=== PATIENT | female | born 1985 | race Caucasian/White ===

== ENCOUNTER → 2016-12-17 | Emergency (ER) | payer OTHER ==
[~2016-12-17] VITALS: Ht 165.1 cm; Wt 56.7 kg
[~2016-12-17] MED LIST: SUBOXONE 8 MG-21 FIL SL
[2016-12-17 19:21] LABS: URINE BILIRUBIN - DIPSTICK NEGATIVE (NEG); URINE BLOOD NEGATIVE (NEG)
--- NOTE | 2016-12-17 19:22 | Emergency Room Report ---
History of Present Illness Time Seen by 1917 Presenting Problem in Triage Pt arrived:Walked Presenting Problem:WAS BROUGHT INTO ER FOR MEDIAL CLEARANCE FROM [facility]. DENIES ANY USE Onset of symptoms date/time:12/17/1607/29/1629 or onset unknown for: Treatment Prior to Arrival: VISUAL ARTIST Provided by: Sepsis Risk Assessment: Temp: 98.9 B/P: 124/79 MAP: 94 Pulse: 100 Resp: 18 Recent fever? N Clinical Suspician of Infection? N Mental Status: 1 - Regular (Normal Baseline) Sepsis Risk:Low Sepsis Risk Have you (or family members/close friends) recently traveled outside the [place]? N If Yes, where/when: Have you had exposure to infectious disease within the past month? N TB? Other? Specify: Mr. Pedro 31 years old -[place] patient of the [facility]oxone clinic. She is incarcerated for the last 6 days. She was brought for medical evaluation after an overdose in her Detention cell. she feels jittery because she is missing her Suboxone but she deniesadditional complaint. She denies drug is in long term or any additional symptoms. Source patient, RN notes reviewed, police, EMS Exam Limitations no limitations ALLERGIES Coded Allergies: No Known Allergies (12/17/16) Home Medications Reported Medications BUPRENORPHINE HCL/NALOXONE HCL (Suboxone 8 MG-2 MG Sl Film) 1 MG SL BID History Medical History General CAD? No Angina: No [place]: No Hypertension? No Hyperlipidemia? No CHF? No DVT? No PE? No COPD? No Asthma? No Anemia? No GERD? No Gastric ulcers? No GI Bleed? No Hernia? No Thyroid Problems? No Hypothyroidism? No CVA? No Seizures? No Diabetes? No Renal Insuffiency? No End Stage Renal Disease? No UTI? No Stones? No BPH? No GB Disease: No Nephritic Syndrome? No Asplenia? No Hepatitis? No Sickle Cell Disease? No Arthritis? No Migraines? No Cataracts? No Glaucoma? No MRSA? No HIV? No TB? No Anxiety? No Depression? No Cancer? No More? 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 Respiratory no symptoms reported Cardiovascular no symptoms reported Gastrointestinal no symptoms reported Genitourinary no symptoms reported. Musculoskeletal no symptoms reported Skin no symptoms reported Psychiatric/Neurological no symptoms reported Physical Exam Vital Signs Vital Signs Date Time Temp Pulse Resp B/P Pulse O2 O2 Flow FiO2 Ox Delivery Rate 12/17 1909 98.9 100 18 124/79 100 General Appearance normal appearance, WD/WN Eye Exam - bilateral eye normal exam, bilateral eye PERRL, bilateral eye EOMI Ear, Nose, Throat hearing grossly normal, normal ENT inspection Neck normal inspection, non-tender, supple, full range of motion Respiratory Status Yes: trachea midline, chest symmetrical, non tender chest. No: respiratory distress. Lung Sounds bilateral: normal breath sounds, lungs clear. 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 No Results/Orders Laboratory Tests 12/17/161904: Opiates Screen Pending, Urine Methadone Screen Pending, Barbiturates Pending, Phencyclidine Screen Pending, Amphetamines Screen Pending, Benzodiazepines Screen Pending, Cocaine Screen Pending, Marijuana (THC) Screen Pending, Urine Color Pending, Urine Appearance Pending, Urine pH Pending, Ur Specific [place] Pending Orders Procedure Date/time Status URINALYSIS/COMPLETE 12/17 1917 Active DRUG ABUSE SCREEN (TRIAGE) 12/17 1917 Active Departure Departure Time of Disposition 1920 Disposition DC Home or Self Care(routine) Clinical Impression Primary Impression: Medical clearance for incarceration Condition STABLE Additional Instructions The patient states that they have been for 3 hours, I contacted poison control, then revised report on exactly and tachycardia. The patient had neither she denied drug use. Discharge Counseling Counseled pt/family regarding diagnosis, test results, home care, follow up needs ED Critical Care Critical Care No If Critical Care minutes are documented, the time involved in the performance of seperately reportable procedures was not counted toward critical care time documented. I directly delivered medical care to this critically ill and/or injured patient. Timely evaluation and treatment was necessary to address the significant organ system(s) dysfunction present in this patient.
--- NOTE | 2016-12-17 19:22 | Emergency Room Report ---
History of Present Illness Time Seen by 1917 Presenting Problem in Triage Pt arrived:Walked Presenting Problem:WAS BROUGHT INTO ER FOR MEDIAL CLEARANCE FROM [facility]. 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 N Clinical Suspician of Infection? N Mental Status: 1 - Regular (Normal Baseline) Sepsis Risk:Low Sepsis Risk Have you (or family members/close friends) recently traveled outside the [place]? N If Yes, where/when: Have you had exposure to infectious disease within the past month? N TB? Other? Specify: Mr. Pedro 31 years old -[place] patient of the Suboxone clinic. She is incarcerated for the last 6 days. She was brought for medical evaluation after an overdose in her Assisted cell. she feels jittery because she is missing her Suboxone but she deniesadditional complaint. She denies drug is in intermediate or any additional symptoms. Source patient, RN notes reviewed, police, EMS Exam Limitations no limitations ALLERGIES Coded Allergies: No Known Allergies (12/17/16) Home Medications Reported Medications BUPRENORPHINE HCL/NALOXONE HCL (Suboxone 8 MG-2 MG Sl Film) 1 MG SL BID History Medical History General CAD? No Angina: No [place]: No Hypertension? No Hyperlipidemia? No CHF? No DVT? No PE? No COPD? No Asthma? No Anemia? No GERD? No Gastric ulcers? No GI Bleed? No Hernia? No Thyroid Problems? No Hypothyroidism? No CVA? No Seizures? No Diabetes? No Renal Insuffiency? No End Stage Renal Disease? No UTI? No Stones? No BPH? No GB Disease: No Nephritic Syndrome? No Asplenia? No Hepatitis? No Sickle Cell Disease? No Arthritis? No Migraines? No Cataracts? No Glaucoma? No MRSA? No HIV? No TB? No Anxiety? No Depression? No Cancer? No More? 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 Respiratory no symptoms reported Cardiovascular no symptoms reported Gastrointestinal no symptoms reported Genitourinary no symptoms reported. Musculoskeletal no symptoms reported Skin no symptoms reported Psychiatric/Neurological no symptoms reported Physical Exam Vital Signs Vital Signs Date Time Temp Pulse Resp B/P Pulse O2 O2 Flow FiO2 Ox Delivery Rate 12/17 1909 98.9 100 18 124/79 100 General Appearance normal appearance, WD/WN Eye Exam - bilateral eye normal exam, bilateral eye PERRL, bilateral eye EOMI Ear, Nose, Throat hearing grossly normal, normal ENT inspection Neck normal inspection, non-tender, supple, full range of motion Respiratory Status Yes: trachea midline, chest symmetrical, non tender chest. No: respiratory distress. Lung Sounds bilateral: normal breath sounds, lungs clear. Cardiovascular normal exam, regular rate/rhythm, no peripheral edema, no gallop, no JVD, no murmur, no rub, normal peripheral pulses Gastrointestinal normal bowel sounds, normal exam, non tender, soft, no organomegaly Back normal inspection, no CVA tenderness, no vertebral tenderness Extremities non-tender, normal range of motion, normal inspection Neurologic alert, slab off mill tender II-XII nml as tested, normal exam, oriented x 3 Reflexes Reflexes normal Yes Skin intact, normal color, warm/dry Lymphatic no adenopathy Medical Decision Making LABS/Meds/Orders Pt receiving controlled substance in ED? No Results/Orders Laboratory Tests 12/17/161904: Opiates Screen Pending, Urine Methadone Screen Pending, Barbiturates Pending, Phencyclidine Screen Pending, Amphetamines Screen Pending, Benzodiazepines Screen Pending, Cocaine Screen Pending, Marijuana (THC) Screen Pending, Urine Color Pending, Urine Appearance Pending, Urine pH Pending, Ur Specific [place] Pending Orders Procedure Date/time Status URINALYSIS/COMPLETE 12/17 1917 Active DRUG ABUSE SCREEN (TRIAGE) 12/17 1917 Active Departure Departure Time of Disposition 1920 Disposition DC Home or Self Care(routine) Clinical Impression Primary Impression: Medical clearance for incarceration Condition STABLE Additional Instructions The patient states that they have been for 3 hours, I contacted poison control, then revised report on exactly and tachycardia. The patient had neither she denied drug use. Discharge Counseling Counseled pt/family regarding diagnosis, test results, home care, follow up needs ED Critical Care Critical Care No If Critical Care minutes are documented, the time involved in the performance of seperately reportable procedures was not counted toward critical care time documented. I directly delivered medical care to this critically ill and/or injured patient. Timely evaluation and treatment was necessary to address the significant organ system(s) dysfunction present in this patient.
[2016-12-17 19:37] LABS: AMPHETAMINES/METAMPHETAMINES NEGATIVE ng/mL (<1000)
[2016-12-17 19:39] VITALS: BP 124/79
--- OUTSIDE RECORDS SUMMARY | 2016-12-24 23:30 | External Medical Summary Rpt ---
Author Author [facility] Organization [facility] Address Unknown Phone Unavailable Care Team Providers Care District Wire Chief Name Role Phone DR KIMBERLY PCP [phone] Encounter [facility] [id number] Date(s): 10/05/16 - 10/06/16 [facility] [address] [place] [address]- Discharge Diagnosis: Abdominal pain Discharge Diagnosis: Nausea Discharge Disposition: OP Self Care or Home Attending Physician: ALEX HAYS MD-EMR Admitting Physician: ALEX HAYS MD-EMR Referring Physician: ALEX HAYS MD-EMR Reason for Visit UNSPECIFIED ABDOMINAL PAIN Vital Signs Most recent 1 2 to oldest [Reference Range]: Temperature Oral Oral Source (10/06/16 4:17 AM) (10/05/16 7:27 PM) Temperature Fahrenheit Fahrenheit Mode (10/06/16 4:17 AM) (10/05/16 7:27 PM) Temperature, 98.3 Deg F 98.1 Deg F Fahrenheit (10/06/16 4:17 AM) (10/05/16 7:27 PM) [96.8-99.7 Deg F] Clinical 36.8 Deg C 36.7 Deg C Temperature, (10/06/16 4:17 AM) (10/05/16 7:27 PM) C Peripheral 74 bpm 87 bpm Pulse Rate (10/06/16 4:17 AM) (10/05/16 7:27 PM) [60-100 bpm] Respiratory 15 Breaths/Min 18 Breaths/Min Rate [14-20 (10/06/16 4:17 AM) (10/05/16 7:27 PM) Breaths/Min] Blood 135/69 mmHg 150/86 mmHg Pressure (10/06/16 4:17 AM) *HI* [90-140/60-9 (10/05/16 7:27 PM) 0 mmHg] Mean 91 mmHg Arterial (10/06/16 4:17 AM) Pressure (MAP) Oxygen 98 % 99 % Saturation (10/06/16 4:17 AM) (10/05/16 7:27 PM) [94-100 %] Oxygen Room air Therapy Mode (10/06/16 4:17 AM) Weight Critical estimated dosing Source, ED weight (10/05/16 7:27 PM) Weight Entry Universal Format (10/05/16 7:27 PM) Weight 95 lb [place] Citizen lb (10/05/16 7:27 PM) CLINICALWEIG 43.18 kg HT (10/05/16 7:27 PM) Problem List Condition Effective Status Health Informant Dates Status Active section(Conf irmed) Allergies, Adverse Reactions, Alerts No Known Allergies Medications buprenorphine-naloxone (Suboxone) SubLINgual , Every Day, Refills: 0 dicyclomine (Bentyl 20 mg oral tablet)1 Tab, Oral, Four Times A Day, 7 Day(s), Refills: 0Ordering provider: LISETH AMADO MD-EMR ondansetron (Zofran ODT 4 mg oral tablet, disintegrating)1 Tab, Oral, Three Times A Day, 3 Day(s), Refills: 0Ordering provider: LISETH AMADO MD-EMR Results GENERAL CHEMISTRY Most recent 1 to oldest [Reference Range]: Sodium Level 140 mmol/L [136-146 (10/05/16 7:43 PM) mmol/L] Potassium 4.2 mmol/L Level (10/05/16 7:43 PM) [3.5-5.1 mmol/L] Chloride 107 mmol/L Level (10/05/16 7:43 PM) [102-112 mmol/L] Carbon 24 mmol/L Dioxide (10/05/16 7:43 PM) Level [21-32 mmol/L] Anion Gap 13 [9-20] (10/05/16 7:43 PM) Glucose 104 mg/dL Level (10/05/16 7:43 PM) [74-106 mg/dL] Blood Urea 7 mg/dL Nitrogen (10/05/16 7:43 PM) [7-22 mg/dL] Creatinine 0.70 mg/dL Level (10/05/16 7:43 PM) [0.55-1.02 mg/dL] eGFR 119 mL/min/1.73m2 [>=60 (10/05/16 7:43 PM) mL/min/1.73m 2] eGFR 98 mL/min/1.73m2 NonAfrican (10/05/16 7:43 PM) [>=60 mL/min/1.73m 2] Bun/Creatini 10.0 ne (10/05/16 7:43 PM) [8.0-20.0] Calcium 9.2 mg/dL Level (10/05/16 7:43 PM) [8.5-10.1 mg/dL] Protein 7.5 Gram/dL Total (10/05/16 7:43 PM) [6.4-8.2 Gram/dL] Albumin 3.4 Gram/dL Level (10/05/16 7:43 PM) [3.4-5.0 Gram/dL] Globulin 4.1 Gram/dL [1.5-4.5 (10/05/16 7:43 PM) Gram/dL] A/G Ratio 0.8 [1.1-2.5] *LOW* (10/05/16 7:43 PM) Bilirubin 0.7 mg/dL Total (10/05/16 7:43 PM) [0.2-1.3 mg/dL] Alk Phos 67 Units/Liter [27-136 (10/05/16 7:43 PM) Units/Liter] AST [5-37 22 Units/Liter Units/Liter] (10/05/16 7:43 PM) ALT [12-78 19 Units/Liter Units/Liter] (10/05/16 7:43 PM) Lipase Level 154 Units/Liter [73-393 (10/05/16 7:43 PM) Units/Liter] HEMATOLOGY Most recent 1 to oldest [Reference Range]: WBC 9.5 K/uL [4.0-10.0 (10/05/16 7:43 PM) K/uL] RBC 4.11 Million/uL [3.93-5.22 (10/05/16 7:43 PM) Million/uL] Hgb 12.2 g/dL [11.2-15.7 (10/05/16 7:43 PM) g/dL] Hct 36.8 % [34.1-44.9 (10/05/16 7:43 PM) %] MCV 89.5 fL [79.0-94.8 (10/05/16 7:43 PM) fL] MCH 29.7 pg [25.6-32.2 (10/05/16 7:43 PM) pg] MCHC 33.2 Gram/dL [32.2-36.5 (10/05/16 7:43 PM) Gram/dL] Platelet 347 K/uL Count (10/05/16 7:43 PM) [163-369 K/uL] MPV 9.9 fL [9.4-12.4 (10/05/16 7:43 PM) fL] RDW 13.2 % [11.6-14.4 (10/05/16 7:43 PM) %] Neut % 56.1 % [34.0-71.0 (10/05/16 7:43 PM) %] Neut # 5.33 K/uL [1.56-6.13 (10/05/16 7:43 PM) K/uL] Lymph % 33.4 % [19.3-53.1 (10/05/16 7:43 PM) %] Lymph # 3.18 x10(3)/uL [1.00-3.90 (10/05/16 7:43 PM) x10(3)/uL] [place] % 7.9 % [3.0-9.0 %] (10/05/16 7:43 PM) [place] # 0.75 K/uL [0.16-1.00 (10/05/16 7:43 PM) K/uL] Eos % 1.7 % [0.0-7.0 %] (10/05/16 7:43 PM) Eos # 0.16 x10(3)/uL [0.00-0.80 (10/05/16 7:43 PM) x10(3)/uL] Baso % 0.6 % [0.0-1.5 %] (10/05/16 7:43 PM) Baso # 0.06 x10(3)/uL [0.00-0.20 (10/05/16 7:43 PM) x10(3)/uL] Slide Review No (10/05/16 7:43 PM) IG# 0.03 x10(3)/uL [0.00-0.05 (10/05/16 7:43 PM) x10(3)/uL] IG% 0.30 % [0.00-0.60 (10/05/16 7:43 PM) %] URINALYSIS Most recent 1 to oldest [Reference Range]: Urine Type U CleanCatch (10/05/16 7:43 PM) Urine Color Roslyn *NA* (10/05/16 7:43 PM) Urine Turbid Appearance *ABN* (10/05/16 7:43 PM) Urine 1.026 Specific (10/05/16 7:43 PM) [place] [1.005-1.030 ] Urine pH 6.0 Dipstick (10/05/16 7:43 PM) [6.0-8.0] Urine Negative Leukocyte (10/05/16 7:43 PM) Esterase [Negative] Urine Negative Nitrite (10/05/16 7:43 PM) [Negative] Urine Trace Protein *ABN* Dipstick (10/05/16 7:43 PM) [Negative] Urine Negative Glucose (10/05/16 7:43 PM) Dipstick [Negative] Urine Trace Ketones *ABN* Dipstick (10/05/16 7:43 PM) [Negative] Urine 1.0 EU/dL Urobilinogen (10/05/16 7:43 PM) Dipstick Urine Small Bilirubin *ABN* Dipstick (10/05/16 7:43 PM) [Negative] Urine Blood Negative Dipstick (10/05/16 7:43 PM) [Negative] Ur RBC 0-2 /HPF *ABN* (10/05/16 7:43 PM) Ur WBC 0-2 /HPF (10/05/16 7:43 PM) Ur Bacteria 1+ *ABN* (10/05/16 7:43 PM) Ur Mucous 3+ *ABN* (10/05/16 7:43 PM) Ur Squamous 0-2 /HPF Epithelial (10/05/16 7:43 PM) Cells Ur Renal 0-2 /HPF Epithelial *ABN* Cells (10/05/16 7:43 PM) Ur Hyaline 0-2 /LPF Casts *ABN* (10/05/16 7:43 PM) TOXICOLOGY Most recent 1 to oldest [Reference Range]: UDS pH 7.0 (10/05/16 11:43 PM) UDS Amp POSITIVE [NEGATIVE] *ABN* (10/05/16 11:43 PM) UDS Noris NEGATIVE [NEGATIVE] (10/05/16 11:43 PM) UDS Benzo NEGATIVE [NEGATIVE] (10/05/16 11:43 PM) UDS Arun NEGATIVE [NEGATIVE] (10/05/16 11:43 PM) UDS Opi NEGATIVE [NEGATIVE] (10/05/16 11:43 PM) UDS PCP NEGATIVE [NEGATIVE] (10/05/16 11:43 PM) UDS TCA Negative (10/05/16 11:43 PM) UDS THC POSITIVE [NEGATIVE] *ABN* (10/05/16 11:43 PM) Immunizations No data available for this section Procedures No data available for this section Social History Social History Response Type Smoking Status Current every day smoker Assessment and Plan No data available for this section Hospital Discharge Instructions Patient EducationAbdominal Pain, Adult Nausea, Adult
--- OUTSIDE RECORDS SUMMARY | 2016-12-24 23:30 | External Medical Summary Rpt ---
Author Author [facility] Organization [facility] Address Unknown Phone Unavailable Care Team Providers Care Tack Welder Name Role Phone DR KIMBERLY PCP [phone] Encounter [facility] [id number] Date(s): 10/05/16 - 10/06/16 [facility] [address] [place] [address]- [phone] Discharge Diagnosis: Abdominal pain Discharge Diagnosis: Nausea [...] ED weight (10/05/16 7:27 PM) Weight Entry Roland Format (10/05/16 7:27 PM) Weight 95 lb [place]ralt[place] lb (10/05/16 7:27 PM) CLINICALWEIG 43.18 kg [...] 3.18 x10(3)/uL [1.00-3.90 (10/05/16 7:43 PM) x10(3)/uL] [place] % 7.9 % [3.0-9.0 %] (10/05/16 7:43 PM) [place] # 0.75 K/uL [0.16-1.00 (10/05/16 7:43 PM) [...] PM) Urine 1.026 Specific (10/05/16 7:43 PM) [place] [1.005-1.030 ] Urine pH 6.0 Dipstick (10/05/16 [...]
--- OUTSIDE RECORDS SUMMARY | 2016-12-24 23:30 | External Medical Summary Rpt ---
Author Author [facility] Organization [facility] Address Unknown Phone Unavailable Care Team Providers Care Vacuum Kettle Cook Name Role Phone DR KIMBERLY PCP [phone] Encounter [facility] [id number] Date(s): 06/03/16 - 06/03/16 [facility] [address] [place] [address]- [phone] Discharge Diagnosis: Acute drug intoxication Discharge Disposition: OP Self Care or Home Attending Physician: PORTER HURST MD-EMR Admitting Physician: PORTER HURST MD-EMR Referring Physician: KIMBERLY, SELF REFERRED Reason for Visit DRUG OVERDOSE Vital Signs Most recent 1 to oldest [Reference Range]: Temperature Oral Source (06/03/16 3:04 PM) Temperature Fahrenheit Mode (06/03/16 3:04 PM) Temperature, 97.7 Deg F Fahrenheit (06/03/16 3:04 PM) [96.8-99.7 Deg F] Clinical 36.5 Deg C Temperature, (06/03/16 3:04 PM) C Peripheral 88 bpm Pulse Rate (06/03/16 3:04 PM) [60-100 bpm] Respiratory 18 Breaths/Min Rate [14-20 (06/03/16 3:04 PM) Breaths/Min] Blood 113/79 mmHg Pressure (06/03/16 3:04 PM) [90-140/60-9 0 mmHg] Oxygen 98 % Saturation (06/03/16 3:04 PM) [94-100 %] Oxygen Room air Therapy Mode (06/03/16 3:04 PM) Height Stated Source (06/03/16 3:04 PM) Height Entry [place] Format (06/03/16 3:04 PM) Height/Lengt 5 ft h, MALDIVIAN (06/03/16 3:04 PM) (ft) Height/Lengt 5 Inch h MALDIVIAN (06/03/16 3:04 PM) CLINICALHEIG 165.1 cm HT (06/03/16 3:04 PM) Weight Standing scale Source, ED (06/03/16 3:04 PM) Weight Entry [place] Format (06/03/16 3:04 PM) Weight 140 lb Yemeni lb (06/03/16 3:04 PM) CLINICALWEIG 63.64 kg HT (06/03/16 3:04 PM) Body Surface 1.7 m2 Area (BSA) (06/03/16 3:04 PM) Body Mass 23.3 kg/m2 Index (BMI) (06/03/16 3:04 PM) [19.0-24.0 kg/m2] Dana Body 57 kg Weight (06/03/16 3:04 PM) Problem List Condition Effective Status Health Informant Dates Status Active section(Conf irmed) Allergies, Adverse Reactions, Alerts No Known Allergies Medications buprenorphine-naloxone (Suboxone) SubLINgual , Every Day, Refills: 0 Results ENDOCRINOLOGY Most recent 1 to oldest [Reference Range]: HCG Urine Negative 1 Qualitative (06/03/16 3:25 PM) 1Result Comment: Performed in the ED. Immunizations No data available for this section Procedures No data available for this section Social History Social History Response Type Smoking Status Current every day smoker Assessment and Plan No data available for this section Hospital Discharge Instructions Patient EducationCannabis Use Disorder Chemical Dependency Marijuana Abuse-Brief
--- OUTSIDE RECORDS SUMMARY | 2016-12-24 23:30 | External Medical Summary Rpt ---
Author Author [facility] Organization [facility] Address Unknown Phone Unavailable Care Team Providers Care Financial Analysis Manager Name Role Phone DR KIMBERLY PCP [phone] Encounter [facility] [id number] Date(s): 06/03/16 - 06/03/16 [facility] [address] [place] [address]- Discharge Diagnosis: Acute drug intoxication Discharge Disposition: [...] Stated Source (06/03/16 3:04 PM) Height Entry Brant Format (06/03/16 3:04 PM) Height/Lengt 5 ft h, POLISH (06/03/16 3:04 PM) (ft) Height/Lengt 5 Inch h POLISH (06/03/16 3:04 PM) CLINICALHEIG 165.1 cm HT (06/03/16 3:04 PM) Weight Standing scale Source, ED (06/03/16 3:04 PM) Weight Entry Brant Format (06/03/16 3:04 PM) Weight 140 lb Malawian lb (06/03/16 3:04 PM) CLINICALWEIG 63.64 kg HT (06/03/16 3:04 PM) Body Surface 1.7 m2 Area (BSA) (06/03/16 3:04 PM) Body Mass 23.3 kg/m2 Index (BMI) (06/03/16 3:04 PM) [19.0-24.0 kg/m2] [place] Body 57 kg Weight (06/03/16 3:04 PM) [...]
--- OUTSIDE RECORDS SUMMARY | 2016-12-24 23:33 | External Medical Summary Rpt | CCD ---
Author Author , JENS Organization JENS Address Unknown Phone [email or web address] Care Team Providers Care It Disaster Recovery Manager Name Role Phone [facility] INGRIS, INGRIS Unavailable Unavailable CAVATASSI TONY, Unavailable Unavailable CAVATASSI TONY [facility] Unavailable Unavailable [facility] Un[facility] NHUNG KYL, Unavailable Unavailable NHUNG KYL [facility] Unavailable Unavailable [facility], [facility], Unavailable Unavailable [facility] LOVELY, LOVELY Unavailable Unavailable GEGE ANDREW, GEGE Unavailable Unavailable ANDREW PEÑALOZA HARITHA, PEÑALOZA HARITHA Unavailable Unavailable PEÑALOZA HARITHA, PEÑALOZA HARITHA Unavailable Unavailable MARTINEZ THO, MARTINEZ Unavailable Unavailable THO [facility] Unavailable Unavailable TRANSP[facility]ATION [facility], [facility] LUCERO EMILY, LUCERO Unavailable Unavailable EMILY [facility], Unavailable Unavailable [facility] HARNED ABDIRIZAK, HARNED Unavailable Unavailable ABDIRIZAK MAI NATTY, MAI NATTY Unavailable Unavailable RUPERT LAR, Unavailable Unavailable RUPERT LAR LYNCH LEL, LYNCH LEL Unavailable Unavailable NATACHA ALICE, NATACHA Unavailable Unavailable ALICE FELI ANDREW, FELI Unavailable Unavailable ANDREW CURTIS, CURTIS Unavailable Unavailable ARELIS MARCO, ARELIS MARCO Unavailable Unavailable [facility] # Unavailable Unavailable [id number], [facility] # [id number] [facility] # Unavailable Unavailable [id number], [facility] # [id number] [facility] # Unavailable Unavailable [id number], [facility] # [id number] [facility] Unavailable Unavailable [facility] Unavailable Unavailable [facility] [place] [facility] Unavailable [facility]available [facility] [place] [facility] Unavailable Unavailable [facility], [facility] -, [facility] - Unavailable Unavailable [facility] Unavailable Unavailable SERVICES, [facility] MELIO PAULA, MELIO PAULA Unavailable Unavailable RODGERS ANDREW, RODGERS Unavailable Unavailable ANDREW LANDRY GLE, LANDRY GLE Unavailable Unavailable NELTCYNTHIA EVA, NENER Unavailable Unavailable EVA [facility] Unavailable Unavailable PSC, [facility] OPII, OPII Unavailable Unavailable [facility], Unavailable Unavailable [facility] Unavailable Unavailable LAB, [facility] Unavailable Unavailable LAB, [facility] SILVIANO BAR, PAWLEY Unavailable Unavailable BAR PENCE, PENCE Unavailable Unavailable [facility], Unavailable Unavailable [facility] Un[facility], [facility] Unavailable Unavailable [facility], [facility] Unavailable Unavailable [facility], [facility], Unavailable Unavailable [facility] DEISY RAPHAEL, OLIVAS Unavailable Unavailable [facility] Unavailable Unavailable CLINIC, [facility], Unavailable Unavailable [facility] Unavailable Unavailable [facility], [id number] # Unavailable Unavailable [id number], [facility] # [id number] [facility] # Unavailable Unavailable [phone], [facility] # 9857 PEREZ ELIZABETH, PEREZ Unavailable Unavailable ELIZABETH PRATIMA IV, Unavailable Unavailable PRATIMA IV BACK NAZ, BACK Unavailable Unavailable NAZ [facility] Unavailable Unavailable [facility] WOOLUM EVA, WOOLUM Unavailable Unavailable EVA MAXWELL W, MAXWELL W Unavailable Unavailable Purpose Continuity of Care Document - 12-02-2009 through 2016 Problems Code Diagnosis DOS Provider Status [id number] CELLULITIS 10-24-2016 [facility] E871 HYPO-OSMOLA 10-23-2016 [facility] HYPONATREMI PROFESSIO A J9811 ATELECTASIS 10-23-2016 [facility] R05 COUGH 10-23-2016 [facility] Q91577 CUTANEOUS 10-22-2016 [facility] LEFT UPPER PHYS [facility] LIM[place] K5909 OTHER 10-05-2016 [facility] [place] [facility] N R1011 RIGHT UPPER 10-05-2016 [facility] PAIN PHYS R112 NAUSEA WITH 10-05-2016 [facility] VOMITING N EMERGENCY UNSPECIFIED PHYS R69 ILLNESS 09-28-2016 [facility] UNSPECIFIED TRANSPORTAT ION SER R42 DIZZINESS 06-03-2016 [facility] GIDDINESS COG[facility]T R5383 OTHER 06-03-2016 [facility] [place] FATIGUE URBAN COG[facility]T [id number] TOXIC 06-03-2016 [facility] [place] EFFECT [facility]RBAN SMOKE [facility] UNDETERMINE D INITIAL ENCNTR K8010 CALCULUS GB 12-04-2015 [facility] CHOLECYST [facility] W/O OBSTRUCTION R590 LOCALIZED 12-04-2015 [facility] EN[facility]ARGED [facility] LYMPH [facility]ES [facility] R599 ENLARGED 12-04-2015 [facility] UNSPECIFIED K8020 CALCULUS GB 11-21-2015 [facility] W/O SERV CHOLECYSTIT [facility] IS W/O OBSTRUCTION R109 UNSPECIFIED 11-06-2015 [place] [facility]OM[facility]AL SERV PAIN [facility] Z720 TOBACCO USE 11-06-2015 [facility] 23009 NAUSEA 05-18-2014 [facility] PH[facility] 9919 UNSPECIFIED 05-18-2014 [place] [place] EFFECT OF URBAN REDUCED COGOVT TEMPERATURE 10574 UNSPECIFIED 11-16-2013 [facility] HEPATITIS C PHYS PSC W/O HEPATIC COMA 52849 ABDOMINAL 11-16-2013 [facility] PAIN, EMERGENCY UNSPECIFIED PHYS PSC SITE 462 ACUTE 04-09-2011 PEÑALOZA HARITHA PHARYNGITIS 6238 OTHER 02-24-2011 [facility] SPECIFIED N EMERGENCY NONINFLAMMA PHYSI TORY DISORDER VAGINA 7881 DYSURIA 02-24-2011 [facility] N EMERGENCY PHYSI 7242 LUMBAGO 12-23-2010 [facility] 3549 UNSPECIFIED 10-20-2010 [facility] MONONEURITI S OF UPPER LIMB 3559 MONONEURITI 10-20-2010 [facility] S OF N EMERGENCY UNSPECIFIED PHYS SITE 7295 PAIN IN 2010 [facility] TISSUES OF [facility]OUNDAT[facility] LIM[place] 7379 UNSPECIFIED 2010 [place] [facility] CURV[facility] SERV OF SPINE [facility] 8472 LUMBAR 09-05-2010 [facility] E9270 OVEREXERTIO 09-05-2010 [facility] FROM EMERGENCY SUDDEN SERVICES STRENUOUS MOVEMENT 67978 OTH COMP OB 06-28-2010 [facility] SURGICAL N EMERGENCY WOUNDS SERV COND/COMP 36503 INFECTED 06-21-2010 [facility] POSTOPERATI VE SEROMA NEC V3001 SINGLE 06-13-2010 [facility] [address] PREV C/S 06-10-2010 [facility] DELIV DELIV CENTER W/WO PLLC MENTION ANTPRTM COND V252 STERILIZATI 06-10-2010 [facility] V270 OUTCOME OF 06-10-2010 [facility] DELIVERY CENTER SINGLE PLLC LIVEBORN V221 SUPERVISION 06-09-2010 [facility] OF OTHER CENTER NORMAL PLLC 43900 RHESUS 03-21-2010 [facility] ISOIMMUN CENTER AFFCT MGMT PLLC MOTH ANTPRTM COND V283 ENCOUNTER 01-30-2010 [facility] ROUTINE CENTER SCREEN PLLC MALFORMATIO N ULTRASONIC 95075 PREVIOUS 01-20-2010 [facility] C[facility] ANTPR[facility] COND/COMP V237 INSUFFICIEN 01-20-2010 [facility] CARE H D V2389 SUPERVISION 01-20-2010 [facility] [place] [facility] HIGH-RISK H D V2509 OTH GENERAL 01-20-2010 [facility] CNSL&ADVICE H D CONTRACEPT MANAGEMENT 6264 IRREGULAR 12-02-2009 [facility] MENSTRUAL CENTER CYCLE PLLC V745 SCREENING 12-02-2009 PATHOLOGY & EXAMINATION CYTOLOGY FOR LAB VENEREAL DISEASE Medications Na ND Rx Da Fi Fi Am Da Di Ph RX Ph St me C No te ll ll ou ys ag ar # ys at rm s nt no ma ic us Or Da si cy ia de te s n re d NA 69 02 03 2. 1 00 KE Ac RC 54 -2 -1 00 05 NT ti AN 70 0- 7- 0 07 UC ve 4 35 20 20 31 [place] 30 17 17 21 MG 2 37 CL IN NA IC SA L PH SP AR RA MA Y CY FL 58 12 01 0. 1 00 RI Ac UA 16 -1 -0 50 00 TE ti RI 00 5- 9- 0 00 ve X 90 20 20 18 AI QU 55 16 17 18 D AD 2 11 PH AR 20 MA 16 CY -2 01 #7 7 89 SY 2 RI NG E [place] 51 10 10 0 30 30 KR [address] 67 -0 -0 .0 OG 05 LS ti AT 21 7- 7- 00 ER 48 ON ve IN 28 20 20 0 90 11 11 PH ER 10 2 AR IN 0, MA L 00 CY 0 # UN IT 24 /G 35 M 2 CR EA M CI 55 08 08 [address] Ac TA 11 -2 -2 .0 OG 79 EW ti LO 10 3- 3- 00 ER [address] 34 20 20 1 T AM 43 11 11 PH MARIA INES 0 AR HN HB MA J R CY 40 # MG 24 76 TA 8 BL ET 00 08 08 0 [address] Ac 40 -2 -2 .0 OG 28 EW ti 60 3- 3- 00 ER 48 AR ve 35 20 20 4 T 70 11 11 PH MARIA INES 5 AR HN MA J CY # 24 76 8 00 08 08 0 20 10 KR 67 WO Ac 14 -0 -0 .0 OG 77 OS ti 31 8- 9- 00 ER 70 TE ve 34 20 20 9 R 80 11 11 PH WI 5 AR LL MA IA CY M # E 24 76 8 00 08 08 0 28 14 KR 44 CA Ac 40 -0 -0 .0 OG 28 RY ti 60 3- 3- 00 ER 11 ve 35 20 20 6 LA 70 11 11 PH RR 5 AR Y MA C CY # 24 76 8 DI 00 08 08 1 14 7 KR 67 CA Ac CL 37 -0 -0 .0 OG 77 RY ti OF 86 3- 3- 00 ER 12 ve EN 28 20 20 1 LA AC 10 11 11 PH RR 1 AR Y SO MA C D CY DR # 75 24 76 MG 8 TA B CY 00 08 08 1 30 10 KR 67 CA Ac CL 60 -0 -0 .0 OG 77 RY ti OB 33 3- 3- 00 ER 12 ve EN 07 20 20 2 LA ZA [address] 1 AR Y IN MA C E CY 5 # MG 24 TA 76 BL 8 ET PO 51 08 08 6 52 31 KR 67 CA Ac LY 99 -0 -0 7. OG 77 RY ti ET 10 3- 3- 00 ER 12 ve HY 45 20 20 0 3 LA LE 75 11 11 PH RR NE 7 AR Y MA C GL CY YC # OL 24 33 76 50 8 PO WD [place] 00 08 08 0 60 7 KR [address] 60 -0 -0 .0 OG 76 LS ti AT 31 2- 2- 00 ER 93 ON ve IN 48 20 20 3 14 11 11 PH ER 10 9 AR IN 0, MA L 00 CY 0 # UN IT 24 /M 76 L 8 RICHTER SP CY 00 06 06 0 6. 2 KR 67 RO Ac CL 59 -2 -2 00 OG 72 HE ti OB 15 4- 8- 0 ER 29 ve EN 65 20 20 9 PA ZA [address] 0 AR E IN MA E E CY 10 # MG 24 76 TA 8 BL ET NA 00 06 06 0 20 10 KR [address] 09 -2 -2 .0 OG 72 HE ti OX 30 4- 8- 00 ER 30 ve EN 14 20 20 0 PA 90 11 11 PH IG 50 5 AR E 0 MA E MG CY # TA BL [address] 00 06 06 0 10 5 KR 67 RO Ac ED 05 -2 -2 .0 OG 72 HE ti NI 40 4- 8- 00 ER 30 ve SO 01 20 20 1 PA NE 82 11 11 PH IG 5 AR E 20 MA E CY MG # TA 24 BL 76 ET 8 [place] 00 05 05 0 30 15 KR [address] 60 -1 -2 .0 OG 67 LS ti AT 31 1- 2- 00 ER 51 ON ve IN 48 20 20 9 15 11 11 PH ER 10 8 AR IN 0, MA L 00 CY 0 # UN IT 24 /M 76 L 8 RICHTER SP [place] 00 05 05 0 20 8 KR [address] 60 -0 -0 .0 OG 65 RT ti AT 31 4- 4- 00 ER 16 ER ve IN 48 20 20 8 15 11 11 PH CR 10 8 AR AI 0, MA G 00 CY T 0 # UN IT 24 /M 76 L 8 RICHTER SP NE 00 04 04 1 30 30 KR 63 WI Ac XI 18 -2 -2 .0 OG 78 LS ti UM 64 5- 5- 00 ER 61 ON ve [address] 00 11 11 PH ER 1 AR IN 20 MA L CY MG # PA 24 CK 35 ET 9 00 04 04 0 20 5 WA 37 DU Ac 59 -2 -2 .0 LG 83 NC ti 10 5- 5- 00 RE 43 AN ve 38 20 20 EN 50 11 11 S TH 5 #9 OM 85 7 J # 98 57 00 04 04 1 60 30 SO 37 WI Ac 47 -2 -2 .0 PE 16 LS ti 20 2- 2- 00 RS 60 ON ve 38 20 20 31 11 11 FA ER 6 MA IN LY L DR UG OX 00 04 04 0 15 1 KR 22 RO Ac YC 40 -1 -1 .0 OG 13 CK ti OD 60 6- 6- 00 ER 21 ve ON 51 20 20 1 TR E- 20 11 11 PH OY AC 1 AR C ET MA AM CY IN # OP HE 24 N 76 5- 8 32 5 RICHTER 53 04 04 0 28 7 KR 67 WO Ac LF 74 -1 -1 .0 OG 62 OS ti AM 60 6- 6- 00 ER 71 TE ve ET 27 20 20 8 R HO 20 11 11 PH WI XA 5 AR LL ZO MA IA LE CY M -T # E MP 24 DS 76 8 TA BL ET 00 04 04 0 20 5 KR 44 DU Ac 59 -0 -0 .0 OG 25 NC ti 10 6- 6- 00 ER 79 AN ve 38 20 20 9 50 11 11 PH TH 5 AR OM MA CY J # 24 76 8 OX 00 03 04 0 40 3 KR 22 DU Ac YC 40 -3 -0 .0 OG 13 NC ti OD 60 1- 1- 00 ER 09 AN ve ON 51 20 20 6 E- 20 11 11 PH TH AC 1 AR OM ET MA AM CY J IN # OP HE 24 N 76 5- 8 32 5 IB 53 03 04 2 30 7 KR 67 DU Ac UP 74 -3 -0 .0 OG 60 NC ti RO 60 1 1 00 ER 70 AN ve FE 46 20 20 4 N 50 11 11 PH TH 60 5 AR OM 0 MA MG CY J # TA BL 24 ET 76 8 DO 00 03 04 1 30 15 KR 67 DU Ac CU 53 -3 -0 .0 OG 60 NC ti SA 63 1 00 ER 74 AN ve TE 75 20 20 8 50 11 11 PH TH CA 1 AR OM L MA 24 CY J 0 # MG 24 CA 76 PS 8 UL E AZ 00 03 03 0 6. 5 WA 36 DU Ac IT 09 -0 -0 00 LG 76 NC ti HR 37 1- 1- 0 RE 98 AN ve OM 14 20 20 EN YC 61 11 11 S TH IN 8 #9 OM 85 25 7 J 0 # MG 98 57 TA BL ET SE 59 12 12 5 15 30 WA 89 DU Ac RT 76 -0 -0 .0 LG 11 NC ti RA 24 7- 9- 00 RE 58 AN ve LI 91 20 20 EN NE 00 10 10 S TH 5 #5 OM HC 57 L 4 J 10 # 0 55 MG 74 TA BL ET FE 64 12 12 5 30 30 WA 89 DU Ac RR 37 -0 -0 .0 LG 16 NC ti OU 60 9- 9- 00 RE 36 AN ve S 80 20 20 EN RICHTER 91 10 10 S TH LF 0 #5 OM AT 57 E 4 J 32 # 5 55 MG 74 TA BL ET Results Labs Lab Lab Date Result Refere Interp Status Commen Order Detail nces retati t Range on Urinalysis dipstick W Reflex Microscopic panel in Urine (12-17-2016 19:05) Bacteri 12-17- NONE O complet a 017 ed [Presen 19:05 ce] in Urine sedimen t by Light microsc opy Erythro NONE 0 complet cytes 017 ed [Presen 19:05 ce] in Urine sedimen t by Light microsc opy Epithel NONE 0#/hp complet ial 017 f - ed cells.s 19:05 5#/hp quamous f [Presen ce] in Urine sedimen t by Microsc opy high power field Urinalysis dipstick W Reflex Microscopic panel in Urine (12-17-2016 19:05) Appeara CLEAR CLEAR complet nce of 017 ed Urine 19:05 Bilirub NEGATIV NEG complet in 017 E ed [Presen 19:05 ce] in Urine by Test strip Erythro NEGATIV NEG complet cytes 017 E ed [Presen 19:05 ce] in Urine Color YELLOW YELLOW complet of 017 ed Urine 19:05 Ketones NEGATIV NEG complet 017 E ed [Presen 19:05 ce] in Urine by Automat ed test strip Mucus NEGATIV NEG complet [Presen 017 E ed ce] in 19:05 Urine sedimen t by Light microsc opy Nitrite NEGATIV NEG complet 017 E ed [Presen 19:05 ce] in Urine by Test strip Urobili 12-17- 0.2 NEG complet nogen 017 ed [Presen 19:05 ce] in Urine by Test strip Drugs identified in Urine by Screen method (12-17-2016 19:05) Ampheta 12-17- NEGATIV <1000 complet mine 017 E ed [Presen 19:05 ce] in Urine by Screen method 11-Hydr 12-17- NEGATIV <50 complet oxy 017 E ed delta-9 19:05 tetrahy drocann abinol [Presen ce] in Unspeci fied specime n Drugs Ur Scn (10-24-2016 17:12) Bupreno [id number] Negativ complet rphine 017 4 e ed SerPl-m 17:12 Positiv Cnc e SCT Propoxy [id number] Negativ complet ph Ur 017 09 e ed Ql 17:12 Negativ e SCT Oxycodo [id number] Negativ complet ne Ur 017 09 e ed Ql Scn 17:12 Negativ e SCT Barbitu [id number] Negativ complet rates 017 09 e ed Ur Ql 17:12 Negativ Scn e SCT Methado [id number] Negativ complet ne Ur 017 09 e ed Ql Scn 17:12 Negativ e SCT Tricycl 3905686 Negativ complet ics Ur 017 09 e ed Ql Scn 17:12 Negativ e SCT Benzodi 3576117 Negativ complet az Ur 017 09 e ed Ql Scn 17:12 Negativ e SCT Amphet+ [id number] Negativ complet Methamp 017 09 e ed het Ur 17:12 Negativ Ql e SCT Opiates 4856202 Negativ complet Ur Ql 017 09 e ed 17:12 Negativ e SCT Ampheta 2662393 Negativ complet mines 017 09 e ed Ur Ql 17:12 Negativ e SCT Cocaine 7650759 Negativ complet Ur Ql 017 09 e ed 17:12 Negativ e SCT PCP Ur [id number] Negativ complet Ql Scn 017 09 e ed 17:12 Negativ e SCT Cannabi [id number] Negativ complet noids 017 09 e ed SerPl 17:12 Negativ Ql e SCT Bas Metab 2000 Pnl SerPl (10-23-2016 15:05) Anion 2.0 3.0-11. complet Gap3 017 mmol/L 0 ed SerPl-s 15:05 Cnc BUN/Cre 10.0 7.0-25. complet at 017 0 ed SerPl 15:05 GFR/BSA 144 >60 complet .pred 017 mL/min/ ed SerPl 15:05 1.73 MDRD-Ar VRat Calcium 9.0 8.7-10. complet 017 mg/dL 4 ed XXX-sCn 15:05 c CO2 25.0 20.0-31 complet SerPl-s 017 mmol/L .0 ed Cnc 15:05 Chlorid 109 99-109 complet e 017 mmol/L ed SerPl-s 15:05 Cnc Potassi 4.0 3.5-5.5 complet um 017 mmol/L ed Bld-sCn 15:05 c Sodium 136 132-146 complet Bld-sCn 017 mmol/L ed c 15:05 Creat 0.50 0.60-1. complet Bld-mCn 017 mg/dL 30 ed c 15:05 BUN 5 mg/dL 9-23 complet Bld-mCn 017 ed c 15:05 Glucose 112 70-100 complet 017 mg/dL ed Bld-mCn 15:05 c Bacteria Shlw Wnd Aerobe Cult (10-23-2016 14:23) Gram No complet Stn XXX 017 organis ed 14:23 ms seen Gram Few complet Stn XXX 017 (2+) ed 14:23 WBCs seen Bacteri [id number] complet a XXX 017 6 ed Aerobe 14:23 Strepto Cult coccus pyogene s SCT Bas Metab 2000 Pnl SerPl (10-23-2016 11:43) Anion 1.0 3.0-11. complet Gap3 017 mmol/L 0 ed SerPl-s 11:43 Cnc GFR/BSA > 150 >60 complet .pred 017 mL/min/ ed SerPl 11:43 1.73 MDRD-Ar VRat Calcium 8.8 8.7-10. complet 017 mg/dL 4 ed XXX-sCn 11:43 c CO2 24.0 20.0-31 complet SerPl-s 017 mmol/L .0 ed Cnc 11:43 Chlorid 112 99-109 complet e 017 mmol/L ed SerPl-s 11:43 Cnc Potassi 4.2 3.5-5.5 complet um 017 mmol/L ed Bld-sCn 11:43 c Sodium 137 132-146 complet Bld-sCn 017 mmol/L ed c 11:43 Creat 0.40 0.60-1. complet Bld-mCn 017 mg/dL 30 ed c 11:43 BUN 2 < 5 9-23 complet Bld-mCn 017 mg/dL ed c 11:43 Glucose 87 70-100 complet 017 mg/dL ed Bld-mCn 11:43 c Bas Metab 2000 Pnl SerPl (10-23-2016 09:54) GFR/BSA 144 >60 complet .pred 017 mL/min/ ed SerPl 09:54 1.73 MDRD-Ar VRat Calcium 8.9 8.7-10. complet 017 mg/dL 4 ed XXX-sCn 09:54 c CO2 23.0 20.0-31 complet SerPl-s 017 mmol/L .0 ed Cnc 09:54 Chlorid 114 99-109 complet e 017 mmol/L ed SerPl-s 09:54 Cnc Potassi 4.2 3.5-5.5 complet um 017 mmol/L ed Bld-sCn 09:54 c Sodium 137 132-146 complet Bld-sCn 017 mmol/L ed c 09:54 Creat 0.50 0.60-1. complet Bld-mCn 017 mg/dL 30 ed c 09:54 BUN < 5 9-23 complet Bld-mCn 017 mg/dL ed c 09:54 Glucose 92 70-100 complet 017 mg/dL ed Bld-mCn 09:54 c Anion 0.0 3.0-11. complet Gap3 017 mmol/L 0 ed SerPl-s 09:54 Cnc Potassium SerPl-sCnc (10-23-2016 09:53) Potassi 08-11-2 4.2 3.5-5.5 complet um 017 mmol/L ed Bld-sCn 09:53 c HIV 1+O+2 Ab SerPl Ql (10-23-2016 09:53) HIV1+2 [id number] [place] complet Ab Ser 017 07 ctive ed Ql 09:53 [place] ctive SCT Hepatitis A+B+C 7a Pnl Ser (10-23-2016 09:53) HCV Ab [id number] [place] complet Ser 017 6 ctive ed Donr Ql 09:53 Reactiv e SCT HBV [id number] [place] complet core 017 07 ctive ed IgM 09:53 [place] SerPl ctive Ql IA SCT HAV IgM [id number] [place] complet SerPl 017 07 ctive ed Ql IA 09:53 [place] ctive SCT HBV [id number] [place] complet surface 017 07 ctive ed Ag 09:53 [place] SerPl ctive Ql IA SCT Bas Metab 2000 Pnl SerPl (10-23-2016 03:43) Anion 5.0 3.0-11. complet Gap3 017 mmol/L 0 ed SerPl-s 03:43 Cnc BUN/Cre 10.0 7.0-25. complet at 017 0 ed SerPl 03:43 GFR/BSA 144 >60 complet .pred 017 mL/min/ ed SerPl 03:43 1.73 MDRD-Ar VRat Calcium 8.5 8.7-10. complet 017 mg/dL 4 ed XXX-sCn 03:43 c CO2 22.0 20.0-31 complet SerPl-s 017 mmol/L .0 ed Cnc 03:43 Chlorid 109 99-109 complet e 017 mmol/L ed SerPl-s 03:43 Cnc Potassi 3.8 3.5-5.5 complet um 017 mmol/L ed Bld-sCn 03:43 c Sodium 136 132-146 complet Bld-sCn 017 mmol/L ed c 03:43 Creat 0.50 0.60-1. complet Bld-mCn 017 mg/dL 30 ed c 03:43 BUN -11-2 5 mg/dL 9-23 complet Bld-mCn 017 ed c 03:43 Glucose -11-2 103 70-100 complet 017 mg/dL ed Bld-mCn 03:43 c Bas Metab 2000 Pnl SerPl (10-23-2016 01:26) Glucose -- 103 70-100 complet 017 mg/dL ed Bld-mCn 01:26 c Anion 10-23-2 4.0 3.0-11. complet Gap3 017 mmol/L 0 ed SerPl-s 01:26 Cnc BUN/Cre 2 10.0 7.0-25. complet at 017 0 ed SerPl 01:26 GFR/BSA 117 >60 complet .pred 017 mL/min/ ed SerPl 01:26 1.73 MDRD-Ar VRat Calcium 8.8 8.7-10. complet 017 mg/dL 4 ed XXX-sCn 01:26 c CO2 25.0 20.0-31 complet SerPl-s 017 mmol/L .0 ed Cnc 01:26 Chlorid 10-23- 109 99-109 complet e 017 mmol/L ed SerPl-s 01:26 Cnc Potassi 3.6 3.5-5.5 complet um 017 mmol/L ed Bld-sCn 01:26 c Sodium 10-23- 138 132-146 complet Bld-sCn 017 mmol/L ed c 01:26 Creat 2 0.60 0.60-1. complet Bld-mCn 017 mg/dL 30 ed c 01:26 BUN 10-23-2 6 mg/dL 9-23 complet Bld-mCn 017 ed c 01:26 UA Dipstick Pnl Ur (10-22-2016 23:49) Urobili 10-22- 0.2 0.2 - complet nogen 017 E.U./dL 1.0 ed Ur Ql 23:49 E.U./dL Strip Nitrite [id number] Negativ complet Ur Ql 017 09 e ed Strip 23:49 Negativ e SCT Leukocy 4889337 Negativ complet te 017 09 e ed esteras 23:49 Negativ e Ur Ql e SCT Strip.a uto Prot Ur [id number] Negativ complet Ql 017 09 e ed Strip 23:49 Negativ e SCT Hgb Ur 7263529 Negativ complet Ql 017 09 e ed Strip.a 23:49 Negativ uto e SCT Bilirub [id number] Negativ complet Ur Ql 017 09 e ed Strip 23:49 Negativ e SCT Ketones 3013848 Negativ complet Ur Ql 017 09 e ed Strip 23:49 Negativ e SCT Glucose 9999539 Negativ complet Ur 017 09 e ed Strip-m 23:49 Negativ Cnc e SCT Sp Gr 1.008 1.001-1 complet Ur 017 .030 ed Strip 23:49 pH Ur 7.0 5.0-8.0 complet Strip.a 017 ed uto 23:49 Clarity [id number] Clear complet Ur 017 01 ed 23:49 Clear SCT Color [id number] Yellow, complet Ur 017 09 Straw ed 23:49 Yellow color SCT Drugs Ur Scn (10-22-2016 23:49) Bupreno [id number] Negativ complet rphine 017 09 e ed SerPl-m 23:49 Negativ Cnc e SCT Propoxy 3062966 Negativ complet ph Ur 017 09 e ed Ql 23:49 Negativ e SCT Oxycodo 7956910 Negativ complet ne Ur 017 09 e ed Ql Scn 23:49 Negativ e SCT Barbitu 7517116 Negativ complet rates 017 09 e ed Ur Ql 23:49 Negativ Scn e SCT Methado 2240483 Negativ complet ne Ur 017 09 e ed Ql Scn 23:49 Negativ e SCT Tricycl 0506298 Negativ complet ics Ur 017 09 e ed Ql Scn 23:49 Negativ e SCT Benzodi 7808398 Negativ complet az Ur 017 09 e ed Ql Scn 23:49 Negativ e SCT Amphet+ 6768860 Negativ complet Methamp 017 09 e ed het Ur 23:49 Negativ Ql e SCT Opiates 0512521 Negativ complet Ur Ql 017 09 e ed 23:49 Negativ e SCT Ampheta [id number] Negativ complet mines 017 09 e ed Ur Ql 23:49 Negativ e SCT Cocaine [id number] Negativ complet Ur Ql 017 4 e ed 23:49 Positiv e SCT PCP Ur [id number] Negativ complet Ql Scn 017 09 e ed 23:49 Negativ e SCT Cannabi [id number] Negativ complet noids 017 09 e ed SerPl 23:49 Negativ Ql e SCT Bacteria Bld Cult (10-22-2016 21:54) Bacteri No complet a XXX 017 growth ed Aerobe 21:54 at 5 Cult days Procedures Procedure DOS Code Location Performer Comment [facility] [id number] CARE/DAY MEDICAL 25 GROUP MINUTES INITIAL [id number] CARE/DAY MEDICAL 70 GROUP MINUTES RADIOLOGI 95609 VIRTUAL CURTIS C EXAM 7 RADIOLOGI CHEST 2 C VIEWS PROFESSIO FRONTAL&[place] [address] CN[facility] [facility] ABDOMEN & 7 RADIOLOGY LD IV PELVIS W/O CONTRAST MATERIAL NONEMERG A0110 FEDERATED LEXTRAN - TRNSPRT&B 7 US TRANSPORT INTRA-/IN ATION SER TERSTATE CARRIER NONEMERG A0110 FEDERATED LEXTRAN - TRNSPRT&B 7 US TRANSPORT INTRA-/IN ATION SER TERSTATE CARRIER NONEMERG A0110 FEDERATED LEXTRAN - TRNSPRT&B 7 US TRANSPORT INTRA-/IN ATION SER TERSTATE CARRIER NONEMERG A0110 FEDERATED LEXTRAN - TRNSPRT&B 7 US TRANSPORT INTRA-/IN ATION SER TERSTATE CARRIER NONEMERG A0110 FEDERATED LEXTRAN - TRNSPRT&B 7 US TRANSPORT INTRA-/IN ATION SER TERSTATE CARRIER NONEMERG A0110 FEDERATED LEXTRAN - TRNSPRT&B 7 US TRANSPORT INTRA-/IN ATION SER TERSTATE CARRIER AMB A0427 MAGDA MAGDA SERVICE 7 [place] [facility]ERGENCY COGOVT COGOVT TRANSPORT LEVEL 1 GROUND A0425 MAGDA MAGDA MILEAGE 7 [place] PER URBAN URBAN STATUTE COGOVT COGOVT MILE IMHISTOCH [address] [place] CINDYLTCYNTHIA EM/CYTCHM 6 Mar EA ADDL SERV ANTIBODY FOUNDATIO SLIDE N ANES 14076 [facility] INTRAPERI 6 [facility] ANESTHESI UPPER A PSC ABDOMEN W/LAPS NOS LAPAROSCO 52306 [place] CAVATASSI PY SURG 6 MEDICAL TONY CHOLECYST SERV ECTOMY FOUNDATIO N LEVEL III 57249 [place] NELTNER SURG 6 MEDICAL MAR PATHOLOGY SERV FOUNDATIO GROSS&ABDIRIZAK N ROSCOPIC EXAM IMHISTOCH 35118 [place] CINDYLTCYNTHIA EM/CYTCHM 6 MEDICAL Mar SERV ANTIBODY FOUNDATIO STAIN N PROCEDURE INJECTION J2405 [facility] 6 Y Y [facility] [place] [address] [place] [address] [facility] LIPASE 6 Y Y [facility] COMPREHEN [address] [facility] SIVE 6 Y Y METABOLIC [facility] PANEL URNLS DIP 68935 [facility] 6 Y Y STICK/TAB [facility] LET RGNT AUTO W/O MICROSCOP Y BLOOD 68050 [facility] COUNT 6 Y Y COMPLETE [facility] AUTOMATED THERAPEUT 44403 [facility] IC 6 Y Y INJECTION [facility] IV PUSH EACH NEW DRUG INJECTION J2270 [facility] [place] MORPHINE 6 Y Y [facility]ATE [facility] UP TO 10 MG THER [address] [facility] [place] PROPH/DX 6 Y Y NJX [facility] PUSH SINGLE/1S T SBST/[place] [address] [place] ABDOMINAL 6 MEDICAL BAR REAL SERV TIME FOUNDATIO W/IMAGE N LIMITED URINE 26410 [facility] [place] 6 Y Y TEST [facility] VISUAL COLOR CMPRSN METHS GROUND A0425 MAGDA MAGDA MILEAGE 5 [place]AY[place] PER URBAN URBAN STATUTE COGOVT COGOVT MILE AMBULANCE A0429 MAGDA MAGDA SERVICE 5 [place]AY[place] FAY[place] BLS URBAN URBAN EMERGENCY COGOVT COGOVT TRANSPORT SERVICES 63889 GREG PEREZ PROVIDED 5 FROY[place]AN ELIZABETH BTW 10 EMERGENCY PM&8 AM PHYS AT 24-HR FACI APPLICATI 97947 GREG BACK ON SHORT 1 FROYLAN NAZ ARM EMERGENCY SPLINT PHYS FOREARM-H AND STATIC RADEX 69435 [place] ARELIS MARCO SPINE 1 MEDICAL LUMBOSACR SERV AL 2/3 FOUNDATIO VIEWS RADEX 52514 [place] [facility] SPINE 1 MEDICAL THORACIC SERV 2 [facility] [place] DISCHARGE 1 [facility] DAY CLINIC MANAGEMEN PSC T 30 MIN/< SUBQ [address] CARE PER CLINIC DAY E/M PSC NORMAL 1ST [address]57 [facility] 1 [facility] CLINIC [place] [address] [facility] MICHELLE DELIVERY 1 CARE THO ONLY CENTER W/POSTPAR PLLC EMELY CARE ANESTHESI 25443 [facility] MELIO PAULA A 1 ANESTHESI A PSC DELIVERY ONLY LOW 741 [facility] CERVICAL 1 [facility] SECTION OTH 6639 [facility] BILATERAL 1 [facility]P DESTRUC/[place] [address] [facility]IP[facility] FELI SURG 1 [facility] PATHOLOGY OLGA LIDIAILIER GROSS&ABDIRIZAK ROSCOPIC EXAM LIG/TRNSX 47662 WOMENMina MARTINEZ J 1 CARE THO FALOPIAN CENTER TUBE PLLC DEL/ABDML SURG GLUCOSE 48009 [facility] POST 1 [facility] GLUCOSE HOSP HOSP DOSE INJECTION J2790 WOMENMina MARTINEZ RHO D IG 1 CARE THO HUMAN CENTER FULL DOSE PLLC 300 MCG COLLECTIO 12115 [facility] N VENOUS 1 [facility] BLOOD HOSP HOSP VENIPUNCT URE BLOOD 51252 [facility]TRAL COUNT 1 [facility] HEMOGLOBI HOSP HOSP N BLOOD 49983 [facility] CENTRAL COUNT 1 [facility] HEMATOCRI HOSP HOSP T ANTIBODY 57338 [facility]ENTRAL SCREEN 1 [facility] RBC EACH HOSP HOSP SERUM [place]QUE [place] PREG 99858 WOMENS LANDRY GLE UTERUS 0 CARE AFTER 1ST CENTER TRIMEST PLLC GESTATION GONADOTRO 56747 GENZYME GENZYME PIN 0 CORPORAT CORPORAT CHORIONIC QUANTITAT SHAYLEE ALPHA-FET 74311 GENZYME GENZYME OPROTEIN 0 [place] [address] GENZYME GENZYME ESTRIOL 0 CORPORAT CORPORAT INHIBIN A 55783 GENZYME GENZYME 0 CORPORAT CORPORAT COLLECTIO 94748 [facility] VENOUS 0 RAHUL-DALT ALICE BLOOD ON CLINIC VENIPUNCT URE IADNA 51756 PATHOLOGY PATHOLOGY CHLAMYDIA 0 & & CYTOLOGY CYTOLOGY TRACHOMAT LAB LAB IS AMPLIFIED PROBE TQ CYTP C/V 43767 PATHOLOGY PATHOLOGY AUTO THIN 0 & & LYR CYTOLOGY CYTOLOGY [place]PJ [place] [address] WOMENS MARTINEZ 0 CARE THO UTERUS CENTER LIMITED PLLC 1/ FETUSES IADNA 67716 PATHOLOGY PATHOLOGY NEISSERIA 0 & & CYTOLOGY CYTOLOGY GONORRHOE LAB LAB AE AMPLIFIED PROBE TQ Encounters Encounter Start End Date Code Location Performer Type Date EMERGENCY 59354 [facility] 7 7 EMERGENCY VISIT PHYS PSC HIGH SEVERITY& THREAT FUNCJ EMERGENCY 28412 [facility] 7 7 [place] VISIT EMERGENCY HIGH PHYS SEVERITY& THREAT FUNCJ OFFICE 48619 [place] [facility] OUTPATI[facility] 6 6 MEDICAL TONY T NEW 20 SERV MINUTES FOUNDATIO [facility] UNIVERSIT - 6 6 Y OUTPATIEN HOSPITAL T EMERGENCY 66567 UNIVERS[facility] WOOL 6 6 Y OF EVA DEPARTMEN [place] T VISIT HOSPI HIGH/URGE NT SEVERITY EMERGENCY 04315 [facility] 5 5 EMERGENCY RYA DEPARTMEN PHYS PSC T VISIT HIGH/URGE NT SEVERITY EMERGENCY 18013 [facility] DEPT 5 5 [place]OY[place] ELIZABETH VISIT EMERGENCY HIGH PHYS SEVERITY& THREAT FUNCJ EMERGENCY 73473 [facility] 4 4 EMERGENCY VISIT PHYS PSC HIGH SEVERITY& THREAT FUNCJ EMERGENCY 87919 PEÑALOZA HARITHA PEÑALOZA HARITHA 2 2 DEPARTMEN T VISIT MODERATE SEVERITY EMERGENCY 23712 [facility] 1 1 [place]OY[place] DEPARTMEN EMERGENCY T VISIT PHYSI HIGH/URGE NT SEVERITY OFFICE 35714 [facility] CHILDRESSEN 1 1 MEDICAL ABDIRIZAK T VISIT SERV 25 FOUNDATIO MINUTES EMERGENCY 22293 [facility] 1 1 FROYLAN NAZ DEPARTMEN EMERGENCY T VISIT PHYS MODERATE SEVERITY [facility]OS[facility] - 1 1 HOSPITAL OUTPATIEN T EMERGENCY 34718 [facility] 1 1 HOSPITAL DEPARTMEN T VISIT LOW/MODER SEVERITY EMERGENCY 51470 SEEMA LUCERO 1 1 EMERGENCY EMILY DEPARTMEN SERVICES T VISIT MODERATE SEVERITY EMERGENCY 10753 [facility] 1 1 [facility] [facility] DEPARTMEN EMERGENCY T VISIT SERV MODERATE SEVERITY [facility], 1 1 E OUTPATIEN T [facility]OSP[facility] 1 1 [facility] INPATIENT HOSP OFFICE 11175 DULCE MARTINEZ OUTPATIEN 1 1 [facility] 15 PLLC MINUTES OFFICE 70035 DENISS MARTINEZ OUTPATIEN 1 1 [facility] 15 PLLC MINUTES OFFICE 34340 [facility] OUTPATIEN 1 1 [facility] 15 PLLC MINUTES OFFICE 61052 [facility] OUTPATIEN 1 1 [facility] 15 PLLC MINUTES OFFICE 66145 WOMENMina MARTINEZ OUTPATIEN 1 1 [facility] 15 PLLC MINUTES OFFICE 53518 WOMENMina MARTINEZ OUTPATIEN 1 1 [facility] 15 PLLC MINUTES OFFICE 08350 WOMENMina MARTINEZ OUTPATIEN 1 1 [facility]IT CENTER 15 PLLC MINUTES [facility] CENTRAL - 1 1 [facility] OUTPATIEN HOSP T OFFICE 02354 WOMENMina MARTINEZ OUTPATIEN 0 0 [facility]ARE [facility] VISIT CENTER 15 PLLC MINUTES OFFICE 07256 GUILLERMO LI OUTPATIEN 0 0 FAYETTE NIKHILYETTE T VISIT CO H D CO H D 10 MINUTES OFFICE 13422 WOMENMina MARTINEZ OUTPATIEN 0 0 CARE THO T NEW CENTER MINUTES PLLC
--- OUTSIDE RECORDS SUMMARY | 2016-12-24 23:33 | External Medical Summary Rpt | CCD ---
Author Author , JENS Organization JENS Address Unknown Phone Care Team Providers Care Global Professional Name Role Phone [facility] Unavailable Unavailable MEDICAL GROUP, [facility] INGRIS, [facility] Unavailable Unavailable CAVATASSI TONY, Unavailable Unavailable CAVATASSI TOYN [facility], Unavailable Unavailable [facility] Unavailable Unavailable PHYS PSC, [...] CORPORAT HARNED ABDIRIZAK, HARNED Unavailable Unavailable ABDIRIZAK AMI NATTY, MAI NATTY Unavailable Unavailable RUPERT LAR, Unavailable Unavailable RUPERT LAR LYNCH LEL, LYNCH LEL Unavailable Unavailable NATACHA ALICE, NATACHA Unavailable Unavailable ALICE FELI ANDREW, FELI Unavailable Unavailable ANDREW CURTIS, CURTIS Unavailable Unavailable ARELIS MARCO, ARELIS MARCO Unavailable Unavailable [facility] # Unavailable Unavailable [id number], [facility] # [id number] [facility] # Unavailable Unavailable 08230, [facility] # [id number] [facility] # Unavailable Unavailable [id number], [facility] # 92531 [facility] Un[facility], [facility] Unavailable Unavailable [facility], [facility] [facility] [facility] Unavailable Unavailable [facility], [facility] [place] [facility] Unavailable Unavailable H D, [facility] [place] [facility] Unavailable Unavailable H D, [facility] H D [facility] -, [facility] - Unavailable Unavailable [facility] Unavailable Unavailable SERVICES, [facility] MELIO PAULA, MELIO PAULA Unavailable Unavailable RODGERS ANDREW, RODGERS Unavailable Unavailable ANDREW LANDRY GLE, LANDRY GLE Unavailable Unavailable NELTCYNTHIA EVA, NENER Unavailable Unavailable EVA [facility] Unavailable Unavailable PSC, [facility] OPII, OPII Unavailable Unavailable [facility], Unavailable Unavailable [facility] Unavailable Unavailable LAB, [facility] Unavailable Unavailable LAB, [facility] SILVIANO BAR, PAWLEY Unavailable Unavailable BAR PENCE, PENCE Unavailable Unavailable [facility], Unavailable Unavailable [facility] Unavailable Un[facility], [facility] Unavailable Unavailable EMERGENCY PHYSI, [facility] Unavailable Unavailable EMERGENCY SERV, [facility], Unavailable Unavailable [facility] DEISY RAPHAEL, OLIVAS Unavailable Unavailable RYA [facility] Unavailable Unavailable CLINIC, [facility], Unavailable Unavailable [facility] Unavailable Unavailable PROFESS[facility], [facility] # Unavailable Unavailable [phone], [facility] # [id number] [facility] # Unavailable Unavailable 9857, [facility] # 9857 PEREZ ELIZABETH, PEREZ Unavailable Unavailable ELIZABETH PRATIMA IV, Unavailable Unavailable PRATIMA IV BACK NAZ, BACK Unavailable Unavailable NAZ [facility] Unavailable Unavailable [facility], [facility] WOOLUM EVA, WOOLUM Unavailable Unavailable EVA MAXWELL W, MAXWELL W Unavailable Unavailable Purpose Continuity of Care Document - 12-02-2009 through 2016 Problems Code Diagnosis DOS Provider Status [id number] CELLULITIS 10-24-2016 [facility] E871 HYPO-OSMOLA 10-23-2016 [facility] HYPONATREMI PROFESSIO A J9811 ATELECTASIS 10-23-2016 [facility] R05 COUGH 10-23-2016 [facility] PROFESS[facility] M02347 CUTANEOUS 10-22-2016 [facility] ABSCESS OF EMERGENCY LEFT UPPER PHYS PSC LIMB K5909 OTHER 10-05-2016 [facility] [place] [facility] RADI[facility] N R1011 RIGHT UPPER 10-05-2016 [facility] EMERGENCY PAIN PHYS R112 NAUSEA WITH 10-05-2016 [facility] VOMITING N EMERGENCY UNSPECIFIED PHYS R69 ILLNESS 09-28-2016 [facility] UNSPECIFIED TRANSPORTAT ION SER R42 DIZZINESS 06-03-2016 [facility] [place] [facility] GIDDINESS COG[facility]T R5383 OTHER 06-03-2016 [facility] [place] FATIGUE URBAN [place]G[facility] [id number] TOXIC 06-03-2016 [facility] [place] EFFECT URBAN SMOKE [place]G[facility] UNDETERMINE D INITIAL ENCNTR K8010 CALCULUS GB 12-04-2015 [place] [facility]RON[facility] CHOLECYST FOUNDATION W/O OBSTRUCTION R590 LOCALIZED 12-04-2015 [place] [facility] ENLARGED SERV LYMPH NODES FOUNDATION R599 ENLARGED 12-04-2015 [place] [facility] L[facility] SERV [facility] UNSPECIFIED K8020 CALCULUS GB 11-21-2015 [place] [facility] W/O SERV CHOLECYSTIT FOUNDATION IS W/O OBSTRUCTION R109 UNSPECIFIED 11-06-2015 [place] [facility] ABDOMINAL SERV PAIN FOUNDATION Z720 TOBACCO USE 11-06-2015 [facility] 92832 NAUSEA 05-18-2014 [facility]ONE [facility] PHYS PSC 9919 UNSPECIFIED 05-18-2014 [facility] [place] EFFECT OF URBAN REDUCED COGOVT TEMPERATURE 94924 UNSPECIFIED 11-16-2013 [facility] VIRAL [facility]ERG[facility] HEPATITIS C PHYS PSC W/O HEPATIC COMA 30031 ABDOMINAL 11-16-2013 [facility] PAIN, EMERGENCY UNSPECIFIED PHYS PSC SITE 462 ACUTE 04-09-2011 PEÑALOZA HARITHA PHARYNGITIS 6238 OTHER 02-24-2011 [facility] SPECIFIED N EMERGENCY NONINFLAMMA PHYSI TORY DISORDER VAGINA 7881 DYSURIA 02-24-2011 [facility] N EMERGENCY PHYSI 7242 LUMBAGO 12-23-2010 [place] [facility] 3549 UNSPECIFIED 10-20-2010 [facility] MONONEURITI S OF UPPER LIMB 3559 MONONEURITI 10-20-2010 [facility] S OF N EMERGENCY UNSPECIFIED PHYS SITE 7295 PAIN IN 2010 [place] [facility] SOFT SERV TISSUES OF FOUNDATIO LIMB 7379 UNSPECIFIED 2010 [place] [facility] CURVATURE SERV OF SPINE FOUNDATIO 8472 LUMBAR 09-05-2010 [facility] E9270 OVEREXERTIO 09-05-2010 [facility] FROM EMERGENCY SUDDEN SERVICES STRENUOUS MOVEMENT 23646 OTH COMP OB 06-28-2010 [facility] SURGICAL N EMERGENCY WOUNDS SERV COND/COMP 44929 INFECTED 06-21-2010 [facility] POSTOPERATI VE SEROMA NEC V3001 SINGLE 06-13-2010 [facility] [place] [address] PREV C/S 06-10-2010 [facility] DELIV DELIV CENTER W/WO PLLC MENTION ANTPRTM COND V252 STERILIZATI 06-10-2010 [facility] V270 OUTCOME OF 06-10-2010 [facility] DELIVERY CENTER SINGLE PLLC LIVEBORN V221 SUPERVISION 06-09-2010 [facility] OF OTHER CENTER NORMAL PLLC 78880 RHESUS 03-21-2010 [facility] ISOIMMUN CENTER AFFCT MGMT PLLC MOTH ANTPRTM COND V283 ENCOUNTER 01-30-2010 [facility] ROUTINE CENTER SCREEN PLLC MALFORMATIO N ULTRASONIC 83816 PREVIOUS 01-20-2010 [facility] C-SECT [facility] DELIVERY CLINIC ANTPRTM COND/COMP V237 INSUFFICIEN 01-20-2010 [facility] [place] [facility] CARE H D V2389 SUPERVISION 01-20-2010 [facility] OF OTHER [place] HIGH-RISK H D V2509 OTH GENERAL 01-20-2010 [facility] CNSL&ADVICE H D CONTRACEPT MANAGEMENT 6264 IRREGULAR 12-02-2009 [facility] MENSTRUAL CENTER CYCLE PLLC V745 SCREENING 12-02-2009 [...] 3- 3- 00 ER 70 AR ve MO 34 20 20 1 T AM 43 [...] LA ZA 82 11 11 PH RR MO 1 AR Y IN MA C E [...] PA ZA 81 11 11 PH IG MO 0 AR E IN MA E E CY 10 # MG 24 76 TA 8 BL ET NA 00 06 06 0 20 10 KR 67 RO Ac MO 09 -2 -2 .0 OG 72 HE ti OX 30 4- 8- 00 ER 30 ve EN 14 20 20 0 PA 90 11 11 PH IG 50 5 AR E 0 MA E MG CY # TA BL 24 ET 76 8 MO 00 06 06 0 10 5 KR [...] 20 31 11 11 FA ER 6 AL IN LY L DR UG OX 00 [...] n Drugs Ur Scn (10-24-2016 17:12) Bupreno [id number] Negativ complet rphine 017 4 e ed SerPl-m 17:12 Positiv Cnc e SCT Propoxy 5106066 Negativ complet ph Ur 017 09 e ed Ql 17:12 Negativ e SCT Oxycodo 3061081 Negativ complet ne Ur 017 09 e ed Ql Scn 17:12 Negativ e SCT Barbitu 9666783 Negativ complet rates 017 09 e ed Ur Ql 17:12 Negativ Scn e SCT Methado 7868247 Negativ complet ne Ur 017 09 e ed Ql Scn 17:12 Negativ e SCT Tricycl 7926485 Negativ complet ics Ur 017 09 e ed Ql Scn 17:12 Negativ e SCT Benzodi 0674047 Negativ complet az Ur 017 09 e ed Ql Scn 17:12 Negativ e SCT Amphet+ 3741606 Negativ complet Methamp 017 09 e ed het Ur 17:12 Negativ Ql e SCT Opiates 9959051 Negativ complet Ur Ql 017 09 e ed 17:12 Negativ e SCT Ampheta 5730092 Negativ complet mines 017 09 e ed Ur Ql 17:12 Negativ e SCT Cocaine 0547355 Negativ complet Ur Ql 017 09 e ed 17:12 Negativ e SCT PCP Ur 7016334 Negativ complet Ql Scn 017 09 e ed 17:12 Negativ e SCT Cannabi 4017044 Negativ complet noids 017 09 e ed [...] 017 (2+) ed 14:23 WBCs seen Bacteri 1307820 complet a XXX 017 6 ed Aerobe [...] 1+O+2 Ab SerPl Ql (10-23-2016 09:53) HIV1+2 [id number] Non-[place] complet Ab Ser 017 07 ctive ed Ql 09:53 [place] ctive SCT Hepatitis A+B+C 7a Pnl Ser (10-23-2016 09:53) HCV Ab 5418106 Non[place] complet Ser 017 6 ctive ed Donr Ql 09:53 Reactiv e SCT HBV [id number] Non[place] complet core 017 07 ctive ed IgM 09:53 [place] SerPl ctive Ql IA SCT HAV IgM 1644275 Non[place] complet SerPl 017 07 ctive ed Ql IA 09:53 Non[place] ctive SCT HBV 1597129 Non[place] complet surface 017 07 ctive ed Ag 09:53 Non[place] SerPl ctive Ql IA SCT Bas Metab [...] ed Ur Ql 23:49 E.U./dL Strip Nitrite 1218364 Negativ complet Ur Ql 017 09 e ed Strip 23:49 Negativ e SCT Leukocy 2841617 Negativ complet te 017 09 e ed esteras 23:49 Negativ e Ur Ql e SCT Strip.a uto Prot Ur 2469400 Negativ complet Ql 017 09 e ed Strip 23:49 Negativ e SCT Hgb Ur 5338417 Negativ complet Ql 017 09 e ed Strip.a 23:49 Negativ uto e SCT Bilirub 9516193 Negativ complet Ur Ql 017 09 e ed Strip 23:49 Negativ e SCT Ketones 5513917 Negativ complet Ur Ql 017 09 e ed Strip 23:49 Negativ e SCT Glucose 9076254 Negativ complet Ur 017 09 e ed Strip-m 23:49 Negativ Cnc e SCT Sp Gr 1.008 1.001-1 complet Ur 017 .030 ed Strip 23:49 pH Ur 7.0 5.0-8.0 complet Strip.a 017 ed uto 23:49 Clarity 7055084 Clear complet Ur 017 01 ed 23:49 Clear SCT Color 5893983 Yellow, complet Ur 017 09 Straw ed 23:49 Yellow color SCT Drugs Ur Scn (10-22-2016 23:49) Bupreno [id number] Negativ complet rphine 017 09 e ed SerPl-m 23:49 Negativ Cnc e SCT Propoxy 6998040 Negativ complet ph Ur 017 09 e ed Ql 23:49 Negativ e SCT Oxycodo 8872657 Negativ complet ne Ur 017 09 e ed Ql Scn 23:49 Negativ e SCT Barbitu 5741001 Negativ complet rates 017 09 e ed Ur Ql 23:49 Negativ Scn e SCT Methado 8089799 Negativ complet ne Ur 017 09 e ed Ql Scn 23:49 Negativ e SCT Tricycl 6411956 Negativ complet ics Ur 017 09 e ed Ql Scn 23:49 Negativ e SCT Benzodi 7416426 Negativ complet az Ur 017 09 e ed Ql Scn 23:49 Negativ e SCT Amphet+ 5879498 Negativ complet Methamp 017 09 e ed het Ur 23:49 Negativ Ql e SCT Opiates 0125942 Negativ complet Ur Ql 017 09 e ed 23:49 Negativ e SCT Ampheta 5690754 Negativ complet mines 017 09 e ed Ur Ql 23:49 Negativ e SCT Cocaine 1880493 Negativ complet Ur Ql 017 4 e ed 23:49 Positiv e SCT PCP Ur 5186492 Negativ complet Ql Scn 017 09 e ed 23:49 Negativ e SCT Cannabi 2921743 Negativ complet noids 017 09 e ed SerPl 23:49 Negativ Ql e SCT Bacteria Bld Cult (10-22-2016 21:54) Bacteri No complet a XXX 017 growth ed Aerobe 21:54 at 5 Cult days Procedures Procedure DOS Code Location Performer Comment [facility] [address] CARE/DAY MEDICAL 25 GROUP MINUTES INITIAL [address] CARE/DAY MEDICAL 70 GROUP MINUTES RADIOLOGI 37843 VIRTUAL CURTIS C EXAM 7 RADIOLOGI CHEST 2 C VIEWS PROFESSIO FRONTAL&[place] [address] [facility] ABDOMEN & 7 RADIOLOGY LD IV PELVIS [...] URBAN URBAN STATUTE COG[place] MILE IMHISTOCH 58965 [place] CINDYLTC[place]TH[place] EM/CYTCHM 6 Mar EA ADDL SERV ANTIBODY FOUNDATIO SLIDE N ANES 33786 [facility] UPPER A PSC ABDOMEN W/LAPS NOS LAPAROSCO 49296 [place] [facility] PY SURG 6 MEDICAL TONY CHOLECYST SERV ECTOMY FOUNDATIO N LEVEL III 61984 [place] NELTNER SURG 6 MEDICAL MAR PATHOLOGY SERV FOUNDATIO GROSS&ABDIRIZAK N ROSCOPIC EXAM IMHISTOCH 30612 [place] CINDYLTC[place]TH[place] EM/CYTCHM 6 MEDICAL Mar SERV ANTIBODY FOUNDATIO STAIN N PROCEDURE INJECTION J2405 [facility] 6 [facility] [address] [place] [address] [facility] LIPASE 6 Y Y [facility] COMPREHEN 16640 [facility] SIVE 6 Y Y METABOLIC [facility] PANEL URNLS DIP 40558 [facility] 6 Y Y STICK/TAB [facility] LET RGNT AUTO W/O MICROSCOP Y BLOOD 85949 [facility] COUNT 6 Y Y COMPLETE [facility] AUTOMATED THERAPEUT 71892 [facility] IC 6 Y Y INJECTION [facility] IV PUSH EACH NEW DRUG INJECTION J2270 [facility] MORPHINE 6 Y Y SULFATE [facility] UP TO 10 MG THER 13467 [facility] PROPH/DX 6 Y Y NJX [facility] PUSH SINGLE/1S [place] SBST/[place] [address] [place] ABDOMINAL 6 MEDICAL BAR REAL SERV TIME FOUNDATIO W/IMAGE N LIMITED URINE 20576 [facility] 6 Y Y TEST [facility] VISUAL COLOR CMPRSN METHS GROUND A0425 [facility] MAGDA MILEAGE 5 [place] PER [facility]RB[facility] URBAN STATUTE COGOVT COGOVT MILE AMBULANCE A0429 MAG[facility] MAGDA SERVICE 5 [place] BLS [facility]AN EMERGENCY COGOVT COGOVT TRANSPORT SERVICES 08387 GREG PEREZ PROVIDED 5 [place] ELIZABETH BTW 10 EMERGENCY PM&8 AM PHYS AT 24-HR FACI APPLICATI 42412 GREG BACK ON SHORT 1 [place] NAZ ARM EMERGENCY SPLINT PHYS FOREARM-H AND STATIC RADEX 17871 [place] ARELIS [facility] SPINE 1 MEDICAL LUMBOSACR SERV AL 2/3 FOUNDATIO VIEWS RADEX 02583 [place] [facility] SPINE 1 MEDICAL THORACIC SERV 2 [facility] 39943 [place] DISCHARGE 1 [facility] DAY CLINIC MANAGEMEN PSC T 30 MIN/< SUBQ [address] CARE PER CLINIC DAY E/M PSC NORMAL 1ST 67538 [facility] [place] [address] [facility] MICHELLE DELIVERY 1 CARE THO ONLY CENTER W/POSTPAR PLLC EMELY CARE ANESTHESI 03135 [facility] MELIO PAULA A 1 ANESTHESI A PSC DELIVERY ONLY LOW 741 [facility] CERVICAL 1 [facility] SECTION OTH 6639 [facility] BILATERAL 1 [facility]P DESTRUC/[place] [address] [facility] FELI SURG 1 [facility] PATHOLOGY OLGA LIDIAILIER GROSS&ABDIRIZAK ROSCOPIC EXAM LIG/TRNSX 76349 WOMENMina MARTINEZ J 1 CARE THO FALOPIAN CENTER TUBE PLLC DEL/ABDML SURG GLUCOSE 90867 [facility] POST 1 [facility] GLUCOSE HOSP HOSP DOSE INJECTION J2790 WOMENMina MARTINEZ RHO D IG 1 CARE THO HUMAN CENTER FULL DOSE PLLC 300 MCG COLLECTIO 10082 [facility] N VENOUS 1 [facility] BLOOD HOSP HOSP VENIPUNCT URE BLOOD 97462 [facility] COUNT 1 [facility] HEMOGLOBI HOSP HOSP N BLOOD 44491 [facility] COUNT 1 [facility] HEMATOCRI HOSP HOSP T ANTIBODY 60818 [facility] SCREEN 1 [facility] RBC EACH HOSP HOSP SERUM TECHNIQUE US PREG 29004 [facility] LANDRY GLE UTERUS 0 CARE AFTER 1ST CENTER TRIMEST PLLC GESTATION GONADOTRO 03503 GENZYME GENZYME PIN 0 CORPORAT CORPORAT CHORIONIC QUANTITAT SHAYLEE ALPHA-FET 98407 GENZ[facility]ME GENZYME OPROTEIN 0 [place] [address] GENZYME GENZYME ESTRIOL 0 CORPORAT CORPORAT INHIBIN A 68522 GENZYME GENZYME 0 CORPORAT CORPORAT COLLECTIO 27619 [facility] VENOUS 0 RAHUL-DALT ALICE BLOOD ON CLINIC VENIPUNCT URE IADNA 19185 PATHOLOGY PATHOLOGY CHLAMYDIA 0 & & CYTOLOGY CYTOLOGY TRACHOMAT LAB LAB IS AMPLIFIED PROBE TQ CYTP C/V 42162 PATHOLOGY PATHOLOGY AUTO THIN 0 & & LYR CYTOLOGY CYTOLOGY [place]J [place] [address] [facility] MARTINEZ 0 CARE THO UTERUS CENTER LIMITED PLLC 1/ FETUSES IADNA 73464 PATHOLOGY PATHOLOGY NEISSERIA 0 & & CYTOLOGY CYTOLOGY GONORRHOE LAB LAB AE AMPLIFIED PROBE TQ Encounters Encounter Start End Date Code Location Performer Type Date EMERGENCY 54744 [facility] 7 7 EMERGENCY VISIT PHYS PSC HIGH SEVERITY& THREAT FUNCJ EMERGENCY 13070 [facility] DEPT 7 7 [place] VISIT EMERGENCY HIGH PHYS SEVERITY& THREAT FUNCJ OFFICE 65946 [place] [facility] OUTPATIEN 6 6 MEDICAL TONY T NEW 20 SERV MINUTES [facility] 6 [facility]PATIEN HOSPITAL T EMERGENCY 93150 [facility] 6 6 Y OF EVA DEPARTMEN [place] T VISIT HOSPI HIGH/URGE NT SEVERITY EMERGENCY 91982 [facility] 5 5 EMERGENCY RYA DEPARTMEN PHYS PSC T VISIT HIGH/URGE NT SEVERITY EMERGENCY 50626 [facility] PEREZ DEPT 5 5 [place] ELIZABETH VISIT EMERGENCY HIGH PHYS SEVERITY& THREAT FUNCJ EMERGENCY 61587 [facility] [facility] L[facility] DEPT 4 4 EMERGENCY VISIT PHYS PSC HIGH SEVERITY& THREAT FUNCJ EMERGENCY 53964 PEÑALOZA HARITHA PEÑALOZA HARITHA 2 2 DEPARTMEN T VISIT MODERATE SEVERITY EMERGENCY 92664 [facility] MAXWELL W 1 1 [place] DEPARTMEN EMERGENCY T VISIT PHYSI HIGH/URGE NT SEVERITY OFFICE 92832 RYAN CHILDRESSEN 1 1 MEDICAL ABDIRIZAK T VISIT SERV 25 FOUNDATIO MINUTES EMERGENCY 14128 [facility] 1 1 FROY[place]AN NAZ DEPARTMEN EMERGENCY T VISIT PHYS MODERATE SEVERITY HOSPITAL [facility] - 1 1 HOSPITAL OUTPATIEN T EMERGENCY 52332 [facility] 1 1 HOSPITAL DEPARTMEN T VISIT LOW/MODER SEVERITY EMERGENCY 19182 SE[facility] LUCERO 1 1 EMERGENCY EMILY DEPARTMEN SERVICES T VISIT MODERATE SEVERITY EMERGENCY 98402 [facility] 1 1 [facility] DEPARTMEN EMERGENCY T VISIT SERV MODERATE SEVERITY HOME [facility], 1 1 E OUTPATIEN T HOSPITAL [facility] 1 1 [facility] INPATIENT HOSP OFFICE 53711 DULCE MARTINEZ OUTPATIEN 1 1 CARE THO T VISIT CENTER 15 PLLC MINUTES OFFICE 71908 DEN[place] MARTINEZ OUTPATIEN 1 1 CARE THO T VISIT CENTER 15 PLLC MINUTES OFFICE 80071 [facility] MARTINEZ OUTPATIEN 1 1 CARE THO T VISIT CENTER 15 PLLC MINUTES OFFICE 50780 [facility] MARTINEZ OUTPATIEN 1 1 CARE THO T VISIT CENTER 15 PLLC MINUTES OFFICE 11348 WOMENMina MARTINEZ OUTPATIEN 1 1 CARE THO T VISIT CENTER 15 PLLC MINUTES OFFICE 59162 WOMENMina MATRINEZ OUTPATIEN 1 1 CARE THO T VISIT CENTER 15 PLLC MINUTES OFFICE 81965 WOMENMina MARTINEZ OUTPATIEN 1 1 CARE THO T VISIT CENTER 15 PLLC MINUTES [facility] - 1 1 [facility] OUTPATIEN HOSP T OFFICE 31063 WOMENMina MARTINEZ OUTPATIEN 0 0 CARE THO T VISIT CENTER 15 PLLC MINUTES OFFICE 57738 [facility] OUTPATIEN 0 0 [place] NI[facility]ILYET[facility] T VISIT CO H D CO H D 10 MINUTES OFFICE 91469 WOMENMina MARTINEZ OUTPATIEN 0 0 CARE THO T NEW CENTER MINUTES PLLC
--- OUTSIDE RECORDS SUMMARY | 2016-12-24 23:35 | External Medical Summary Rpt | CCD ---
Author Author , JENS COLINDRES Address Unknown Phone [email or web address] Immunization Name Date Rout CVX Reac Dose Comm Prov Is Faci e tion ent ider Refu lity Give sed n Infl 12-1 150 0.5 Hist KHAF No [facility] 5-20 mL oric MOOKIE AID0 a 16 al AYMA 7892 Quad Info N Inj rmat ion - Sour ce Unsp ecif ied MMR 05-2 Intr 3 999 Hist H134 No H134 3-19 amus oric 96 cula al r Info rmat ion - Sour ce Unsp ecif ied
--- OUTSIDE RECORDS SUMMARY | 2016-12-24 23:35 | External Medical Summary Rpt | CCD ---
Author Author , JENS COLINDRES Address Unknown Phone [email or web address] Immunization Name Date Rout CVX Reac Dose [...]
--- OUTSIDE RECORDS SUMMARY | 2016-12-24 23:35 | External Medical Summary Rpt | CCD ---
Author Author , JENS Organization JENS Address Unknown Phone [email or web address] Care Team Providers Care Computer Information Science Professor Name Role Phone [facility] Unavailable Unavailable MEDICAL GROUP, [facility] INGRIS AMADO Unavailable Unavailable CAVATASSI TONY, Unavailable Unavailable C[facility]AT[facility] TONY [facility], Unavailable Unavailable [facility] Unavailable Unavailable [facility], [...] Unavailable Unavailable ANDREW CURTIS, CURTIS Unavailable Unavailable [facility] # Unavailable Unavailable [id number], [facility] # [id number] [facility] # Unavailable Unavailable [id number], [facility] # [id number] [facility] # Unavailable Unavailable [id number], [facility] # [id number] [facility], [facility]available Unavailable [facility], [facility] Unavailable Unavailable [facility], [facility] Unavailable [facility]available [facility], [facility] Unavailable Unavailable [facility], [facility] -, [facility] - Unavailable Unavailable [facility] Unavailable Unavailable SERVICES, [facility] MELIO PAULA, MELIO PAULA Unavailable Unavailable RODGERS ANDREW, RODGERS Unavailable Unavailable ANDREW HO, FRANTZ GLE Unavailable Unavailable NELUANN EVA, NELUANN Unavailable Unavailable EVA [facility] Unavailable Unavailable PSC, [facility] OPII, OPII Unavailable Unavailable [facility], Unavailable Unavailable [facility] Unavailable Unavailable LAB, [facility] Unavailable Unavailable LAB, [facility] LAB PENCE, PENCE Unavailable Unavailable [facility], Unavailable Unavailable [facility] Un[facility] Unavailable Unavailable [facility], [facility] Unavailable Unavailable [facility]GENCY SERV, [facility]GENCY SERV [facility], Unavailable Unavailable [facility] DONAVON, DEISY Unavailable Unavailable DONAVON MORALES, EMIR Unavailable Unavailable ANDREW [facility] Unavailable Unavailable CLINIC, [facility], Unavailable Unavailable [facility] Unavailable Unavailable PROFESS[facility], [facility] # Unavailable Unavailable [phone], [facility] # [id number] [facility] # Unavailable Unavailable [phone], [facility] # 9857 PEREZ ELIZABETH, PEREZ Unavailable Unavailable ELIZABETH PRATIMA IV, Unavailable Unavailable PRATIMA IV BACK NAZ, BACK Unavailable Unavailable [facility] Unavailable Unavailable [facility], [facility] WOOLUM EVA, WOOLUM Unavailable Unavailable EVA MAXWELL W, MAXWELL W Unavailable Unavailable Purpose Continuity of Care Document - 12-02-2009 through 2016 Problems Code Diagnosis DOS Provider Status [id number] CELLULITIS 10-24-2016 [facility] E871 HYPO-OSMOLA 10-23-2016 [facility] HYPONATREMI PROFESSIO A J9811 ATELECTASIS 10-23-2016 [facility] R05 COUGH 10-23-2016 [facility] PROFESS[facility] [id number] CUTANEOUS 10-22-2016 [facility] ABSCESS OF EMERGENCY LEFT UPPER PHYS PSC LIMB K5909 OTHER 10-05-2016 [facility] [place] [facility] RADIOLOG[facility] N R1011 RIGHT UPPER 10-05-2016 [facility] EMERGENCY PAIN PHYS R112 NAUSEA WITH 10-05-2016 [facility] VOMITING N EMERGENCY UNSPECIFIED PHYS R69 ILLNESS 09-28-2016 [facility] UNSPECIFIED TRANSPORTAT ION SER R42 DIZZINESS 06-03-2016 [facility] GIDDINESS COGOVT R5383 OTHER 06-03-2016 [facility] FATIGUE URBAN COG[facility]T [id number] TOXIC 06-03-2016 [facility] EFFECT URBAN SMOKE COGOVT UNDETERMINE D INITIAL ENCNTR K8010 CALCULUS GB 12-04-2015 [facility]RON[facility] CHOLECYST [facility]OUNDATION W/O OBSTRUCTION R590 LOCALIZED 12-04-2015 [place] [facility] ENLARGED SERV LYMPH NODES FOUNDATION R599 ENLARGED 12-04-2015 [facility] L[facility] SERV [facility] UNSPECIFIED K8020 CALCULUS GB 11-21-2015 [place] [facility] W/O SERV CHOLECYSTIT [facility]OUNDATION IS W/O OBSTRUCTION R109 UNSPECIFIED 11-06-2015 [place] [facility] ABDOMINAL SERV PAIN FOUNDATION Z720 TOBACCO USE 11-06-2015 [facility] 68440 NAUSEA 05-18-2014 [facility]ONE [facility] PHYS PSC 9919 UNSPECIFIED 05-18-2014 [facility] EFFECT OF URBAN REDUCED COGOVT TEMPERATURE 87331 UNSPECIFIED 11-16-2013 [facility] VIRAL EMERGENCY HEPATITIS C PHYS PSC W/O HEPATIC COMA 66583 ABDOMINAL 11-16-2013 [facility] PAIN, EMERGENCY UNSPECIFIED PHYS PSC SITE 462 ACUTE 04-09-2011 PEÑALOZA HARITHA PHARYNGITIS 6238 OTHER 02-24-2011 [facility] SPECIFIED N EMERGENCY NONINFLAMMA PHYSI TORY DISORDER VAGINA 7881 DYSURIA 02-24-2011 [facility] N EMERGENCY PHYSI 7242 LUMBAGO 12-23-2010 [facility] 3549 UNSPECIFIED 10-20-2010 [facility] MONONEURITI S OF UPPER LIMB 3559 MONONEURITI 10-20-2010 [facility] UNSPECIF[facility] PHYS SITE [address] MED[facility] SOFT SERV TISSUES OF FOUNDATIO LIMB [address] MEDICAL CURVATURE SERV OF SPINE FOUNDATIO 8472 LUMBAR 09-05-2010 [facility] E9270 OVEREXERTIO 09-05-2010 [facility] Morgna FROM EMERGENCY SUDDEN SERVICES STRENUOUS MOVEMENT 76393 OTH COMP OB 06-28-2010 [facility] SURGICAL N EMERGENCY WOUNDS SERV COND/COMP 86355 INFECTED 06-21-2010 [facility] POSTOPERATI VE SEROMA NEC V3001 SINGLE 06-13-2010 [facility] [place] [address] PREV C/S 06-10-2010 [facility] DELIV DELIV CENTER W/WO PLLC MENTION ANTPRTM COND V252 STERILIZATI 06-10-2010 [facility] DUBILIER V270 OUTCOME OF 06-10-2010 [facility] DELIVERY CENTER SINGLE PLLC LIVEBORN V221 SUPERVISION 06-09-2010 [facility] NORMAL PLLC 77901 RHESUS 03-21-2010 [facility] ISOIMMUN CENTER AFFCT MGMT PLLC MOTH ANTPRTM COND V283 ENCOUNTER 01-30-2010 [facility] ROUTINE CENTER SCREEN PLLC MALFORMATIO N ULTRASONIC 57778 PREVIOUS 01-20-2010 [facility] DELIVERY CLINIC ANTPRTM COND/COMP V237 INSUFFICIEN 01-20-2010 [facility] Ly NIKHILY[facility] CO CARE H D V2389 SUPERVISION 01-20-2010 [facility] OF OTHER [place] [facility] HIGH-RISK H D V2509 OT GENERAL 01-20-2010 [facility] TEJEDAY[facility] CNSL&ADVICE H D CONTRACEPT MANAGEMENT 6264 [...] 3- 3- 00 ER 70 AR ve VA 34 20 20 1 T AM 43 [...] LA ZA 82 11 11 PH RR VA 1 AR Y IN MA C E [...] PA ZA 81 11 11 PH IG VA 0 AR E IN MA E E CY 10 # MG 24 76 TA 8 BL ET NA 00 06 06 0 20 10 KR 67 RO Ac VA 09 -2 -2 .0 OG 72 HE ti OX 30 4- 8- 00 ER 30 ve EN 14 20 20 0 PA 90 11 11 PH IG 50 5 AR E 0 MA E MG CY # TA BL 24 ET 76 8 VA 00 06 06 0 10 5 KR [...] 20 31 11 11 FA ER 6 ND IN LY L DR UG OX 00 [...] OG 60 NC ti RO 60 1 ER 70 AN ve FE 46 20 20 4 N 50 11 11 PH TH 60 5 AR OM 0 MA MG CY J # TA BL 24 ET 76 8 DO 00 03 04 1 30 15 KR 67 DU Ac CU 53 -3 -0 .0 OG 60 NC ti SA 63 1 ER 74 AN ve TE 75 20 [...] .0 LG 11 NC ti RA 24 7 00 RE 58 AN ve LI 91 20 20 EN NE 00 10 10 S TH 5 #5 OM HC 57 L 4 J 10 # 0 55 MG 74 TA BL ET FE 64 12 12 5 30 30 WA 89 DU Ac RR 37 -0 -0 .0 LG 16 NC ti OU 60 9 9- 00 RE 36 AN ve S 80 20 20 EN RICHTER 91 10 10 S TH LF 0 #5 OM AT 57 E 4 J 32 # 5 55 MG 74 TA BL ET Procedures Procedure DOS Code Location Performer Comment SBS 32718 [facility] 7 HEALTH CARE/DAY MEDICAL 25 GROUP MINUTES INITIAL 60844 [facility] 7 HEALTH CARE/DAY MEDICAL 70 GROUP MINUTES RADIOLOGI 54907 V[facility] CURTIS C EXAM 7 RADIOLOGI CHEST 2 C VIEWS PROFESSIO FRONTAL&[place] [address] [facility] & 7 RADIOLOGY LD IV [...] PER URBAN URBAN STATUTE COGOVT COGOVT MILE LAPAROSCO 85644 [place] [facility] PY SURG 6 MEDICAL TONY CHOLECYST SERV ECTOMY FOUNDATIO N ANES 69203 [facility] INTRAP[facility] 6 LTH ANDREW TONEAL ANESTHESI UPPER A PSC ABDOMEN W/LAPS NOS LEVEL III 15854 [place] NELT[place] SURG 6 MEDICAL EVA PATHOLOGY SERV FOUNDATIO GROSS&ABDIRIZAK N ROSCOPIC EXAM IMHISTOCH 41740 [place] NELTC[place] EM/CYTCHM 6 MEDICAL Mar SERV ANTIBODY FOUNDAT[facility] STAIN N PROCEDURE IMHISTOCH 01584 [place] NELUANN EM/CYTCHM 6 MEDICAL EVA EA ADDL SERV ANTIBODY FOUNDATIO SLIDE N THER 43998 [facility] PROPH/DX 6 Y Y NJX IV HOSPITAL HOSPITAL PUSH SINGLE/1S T SBST/[place] [address] [facility] LIPASE 6 Y Y HOSPITAL HOSPITAL URINE 10751 [facility] 6 Y Y TEST [facility] [place] [address] [facility] ABDOMINAL 6 Y Y REAL [facility] TIME W/IMAGE LIMITED THERAPEUT 67205 [facility] IC 6 Y Y INJECTION [facility] IV PUSH EACH NEW DRUG INJECTION J2270 [facility] MORPHINE 6 Y Y SULFATE [facility] UP TO 10 MG COMPREHEN 48962 [facility] SIVE 6 Y Y METABOLIC [facility] PANEL URNLS DIP 78012 [facility] 6 Y Y STICK/TAB [facility] LET RGNT AUTO W/O MICROSCOP Y INJECTION J2405 [facility] 6 Y [facility] PER 1 MG BLOOD 57277 [facility] COUNT 6 Y Y COMPLETE [facility] AUTOMATED AMBULANCE A0429 MAG[facility] MAGDA SERVICE 5 [place] BLS URBAN URBAN EMERGENCY COGOVT COGOVT TRANSPORT GROUND A0425 MAGDA MAGDA MILEAGE 5 [place] PER URBAN URBAN STATUTE COGOVT COGOVT MILE SERVICES 11871 GREG SUEROAVER PROVIDED 5 FROYLAN ELIZABETH BTW 10 EMERGENCY PM&8 AM PHYS AT 24-HR FACI APPLICATI 63319 GREG WEATHERSER ON SHORT 1 FROYLAN NAZ ARM EMERGENCY SPLINT PHYS FOREARM-H AND STATIC RADEX 93823 [facility] EMIR SPINE 1 [facility] ANDREW LUMBOSACR ON CLINIC AL 2/3 VIEWS RADEX 08757 [facility] EM[facility] SPINE 1 [facility]REW THORACIC ON CLINIC 2 [facility] 98457 [place] DIS[facility]GE 1 [place] [facility] MANAGEMEN PSC T 30 MIN/< SUBQ 56575 [facility] 1 [place] C[facility] PER CLINIC DAY E/M PSC NORMAL 70554 [facility]/GOYO 1 [place] [facility] [facility] PSC CARE PER DAY NML NB LOW 741 [facility] CERVICAL 1 [facility] HOSP SECTION OTH 6639 [facility] BILATERAL 1 [facility]NOST[facility]IST HOSP HOSP DESTRUC/[place] [address] [facility] FELI SURG 1 [facility]OOK[facility] & ANDREW PATHOLOGY DUBILIER GROSS&ABDIRIZAK ROSCOPIC EXAM 75468 [facility] DELIVERY 1 CARE THO ONLY CENTER W/POSTPAR PLLC EMELY CARE ANESTHESI 33431 [facility] MELIO PAULA A 1 ANESTHESI A PSC DELIVERY ONLY LIG/TRNSX 65482 [facility] MARTINEZ J 1 CARE THO FALOPIAN CENTER TUBE PLLC DEL/ABDML SURG GLUCOSE 96433 [facility] POST 1 [facility]STICIST GNOSTICIST GLUCOSE HOSP HOSP DOSE INJECTION J2790 [facility] RHO D IG 1 CARE THO HUMAN CENTER FULL DOSE PLLC 300 MCG BLOOD 12003 [facility] COUNT 1 [facility]NOSTICIST GNOSTICIST HEMATOCRI HOSP HOSP T COLLECTIO 99517 [facility] N VENOUS 1 GNOSTICIST GNOSTICIST BLOOD HOSP HOSP VENIPUNCT URE ANTIBODY 49030 [facility] SCREEN 1 GNOSTICIST GNOSTICIST RBC EACH HOSP HOSP SERUM TECHNIQUE BLOOD 32776 [facility] COUNT 1 GNOSTICIST GNOSTICIST [place] PREG 39165 [facility] FRANTZ GLE UTERUS 0 CARE AFTER 1ST [place] [address] GENZYME GENZYME ESTRIOL 0 CORPORAT CORPORAT ALPHA-FET 08821 GEN[facility] GENZYME OPROTEIN 0 CORPORAT CORPORAT SERUM GONADOTRO 12845 GEN[facility] GENZYME PIN 0 CORPORAT CORPORAT CHORIONIC QUANTITAT SHAYLEE INHIBIN A 41175 GENZYME GENZYME 0 CORPORAT CORPORAT COLLECTIO 03213 [facility] NATACHA N VENOUS 0 RAHUL-DALT ALICE BLOOD ON CLINIC VENIPUNCT URE IADNA 66664 PATHOLOGY PATHOLOGY NEISSERIA 0 & & CYTOLOGY CYTOLOGY GONORRHOE LAB LAB AE AMPLIFIED PROBE TQ IADNA 46766 PATHOLOGY PATHOLOGY CHLAMYDIA 0 & & CYTOLOGY CYTOLOGY TRACHOMAT LAB [place] [address] [facility] MARTINEZ 0 CARE THO UTERUS CENTER LIMITED PLLC 1/> FETUSES CYTP C/V 58547 PATHOLOGY PATHOLOGY AUTO THIN 0 & & LYR CYTOLOGY CYTOLOGY PREPJ SCR LAB LAB MNL RESCR PHYS Encounters Encounter Start End Date Code Location Performer Type Date EMERGENCY 21701 [facility] DEPT 7 7 EMERGENCY VISIT PHYS PSC HIGH SEVERITY& THREAT FUNCJ EMERGENCY 26271 [facility] DEPT 7 7 FROYLAN VISIT EMERGENCY HIGH PHYS SEVERITY& THREAT FUNCJ OFFICE 19817 [place] [facility] 6 6 MEDICAL TONY T NEW 20 SERV MINUTES FOUNDATIO N EMERGENCY 38291 [facility] 6 6 Y [facility] HIGH/URGE NT SEVERITY [facility]OSPITAL UNIVERSIT - 6 6 Y OUTPATI HOSPITAL T EMERGENCY 39665 [facility] 5 5 EMERGENCY RYA DEPARTMEN PHYS PSC T VISIT HIGH/URGE NT SEVERITY EMERGENCY 86926 [facility] PEREZ DEPT 5 5 FROYLAN ELIZABETH VISIT EMERGENCY HIGH PHYS SEVERITY& THREAT FUNCJ EMERGENCY 50780 [facility] 4 4 EMERGENCY VISIT PHYS PSC HIGH SEVERITY& THREAT FUNCJ EMERGENCY 70901 PEÑALOZA HARITHA PEÑALOZA HARITHA 2 2 DEPARTMEN T VISIT MODERATE SEVERITY EMERGENCY 86476 [facility] MAXWELL W 1 1 FROYLAN DEPARTMEN EMERGENCY T VISIT PHYSI HIGH/URGE NT SEVERITY OFFICE 07318 [place] [facility] OUT[facility]IEN 1 1 MEDICAL ABDIRIZAK T VISIT SERV 25 FOUNDATIO MINUTES EMERGENCY 28139 [facility] 1 1 HOSPITAL DEPARTMEN T VISIT LOW/MODER SEVERITY HOSPITAL [facility] - 1 1 HOSPITAL OUTPATIEN T EMERGENCY 46588 GREG BACK 1 1 FROYLAN CHILDS DEPARTMEN EMERGENCY T VISIT PHYS MODERATE SEVERITY EMERGENCY 30538 [facility] 1 1 EMERGENCY EMILY DEPARTMEN SERVICES T VISIT MODERATE SEVERITY EMERGENCY 44299 [facility] 1 1 FROYLAN ANDREW DEPARTMEN EMERGENCY T VISIT SERV MODERATE SEVERITY [facility], 1 1 E OUTPATIEN [facility] [place] [address] 1 GNOSTICIST INPATIENT HOSP OFFICE 37377 [facility] 1 1 CARE THO T VISIT CENTER 15 PLLC MINUTES OFFICE 12930 [facility] OUTPATIEN 1 1 CARE THO T VISIT CENTER 15 PLLC MINUTES OFFICE 06141 [facility] OUTPATI[facility] 1 1 CARE THO T VISIT CENTER 15 PLLC MINUTES OFFICE 04813 [facility] OUTPATIEN 1 1 CARE THO T VISIT CENTER 15 PLLC MINUTES OFFICE 95947 [facility] OUTPATIEN 1 1 CARE THO T VISIT CENTER 15 PLLC MINUTES OFFICE 01024 [facility] OUTPATIEN 1 1 CARE THO T VISIT CENTER 15 PLLC MINUTES OFFICE 89882 [facility] OUTPATIEN 1 1 CARE THO T VISIT CENTER 15 PLLC MINUTES [facility] [place] [address] 1 GNOSTICIST OUTPATIEN HOSP T OFFICE 92587 [facility] MARTINEZ OUTPATIEN 0 0 CARE THO T VISIT CENTER 15 PLLC MINUTES OFFICE 34367 [facility] [place] [facility] OUT[facility] 0 0 [facility]AY[place] FAYETTE T VISIT CO H D CO H D 10 MINUTES OFFICE 07247 DULCE MARTINEZ OUTPATIEN 0 0 CARE THO T DAVID 45 CENTER MINUTES PLLC
--- OUTSIDE RECORDS SUMMARY | 2016-12-24 23:35 | External Medical Summary Rpt | CCD ---
Author Author , JENS Organization JENS Address Unknown Phone [email or web address] Care Team Providers Care Strapper Name Role Phone [facility] Unavailable Unavailable MEDICAL GROUP, [facility] INGRIS AMADO Unavailable Unavailable CAVATASSI TONY, Unavailable Unavailable CAVATASSI TONY [facility], Unavailable Unavailable [facility] Unavailable Unavailable [facility], [...] Unavailable Unavailable [facility] # Unavailable Unavailable [id number], [facility] # [id number] [facility] # Unavailable Unavailable [id number], [facility] # [id number] [facility] # Unavailable Unavailable [id number], [facility] # [id number] [facility] Un[place], [place] [...] Unavailable Unavailable [facility] Unavailable Unavailable SERVICES, [facility] MELIO PAULA, MELIO PAULA Unavailable Unavailable RODGERS ANDREW, RODGERS Unavailable Unavailable ANDREW HO, FRANTZ GLE Unavailable Unavailable NELUANN EVA, NELUANN Unavailable Unavailable EVA [facility] Unavailable Unavailable PSC, [facility] OPII, OPII Unavailable Unavailable [facility], Unavailable Unavailable [facility] Unavailable Unavailable LAB, [facility] Unavailable Unavailable LAB, [facility] LAB PENCE, PENCE Unavailable Unavailable [facility], Unavailable Unavailable [facility] Un[facility] Unavailable Unavailable [facility], [facility] Unavailable Unavailable [facility]ENCY SERV, [facility], Unavailable Unavailable [facility] DONAVON, DEISY Unavailable Unavailable DONAVON MORALES, EMIR Unavailable Unavailable ANDREW [facility] Unavailable Unavailable CLINIC, [facility], Unavailable Unavailable [facility] Unavailable Unavailable [facility], [id number] # Unavailable Unavailable [phone], [facility] # [id number] [id number] # Unavailable Unavailable 9857, [facility] # 9857 PEREZ ELIZABETH, PEREZ Unavailable Unavailable ELIZABETH PRATIMA IV, Unavailable Unavailable PRATIMA IV BACK NAZ, BACK Unavailable Unavailable [facility] Unavailable Unavailable [facility], [facility] WOOLUM EVA, WOOLUM Unavailable Unavailable EVA MAXWELL W, MAXWELL W Unavailable Unavailable Purpose Continuity of Care Document - 12-02-2009 through 2016 Problems Code Diagnosis DOS Provider Status [id number] CELLULITIS 10-24-2016 [facility] E871 HYPO-OSMOLA 10-23-2016 [facility] HYPONATREMI PROFESSIO A J9811 ATELECTASIS 10-23-2016 [facility] R05 COUGH 10-23-2016 [facility] [id number] CUTANEOUS 10-22-2016 [facility] ABSCESS OF EMERGENCY LEFT [...] OTHER 06-03-2016 MAGDA [place] FATIGUE URBAN COGOVT [id number] TOXIC 06-03-2016 MAGDA [place] EFFECT URBAN SMOKE COGOVT UNDETERMINE D INITIAL ENCNTR K8010 CALCULUS GB 12-04-2015 [facility] W/CHRONIC [facility] CHOLECYST [facility]OUNDATION W/O OBSTRUCTION R590 LOCALIZED 12-04-2015 [facility] ENLARGED SERV LYMPH NODES FOUNDATION R599 ENLARGED 12-04-2015 [facility] LYMPH [facility]ES SERV [facility] UNSPECIFIED K8020 CALCULUS GB 11-21-2015 [place] [facility] W/O SERV CHOLECYSTIT [facility]OUNDATION IS W/O OBSTRUCTION R109 UNSPECIFIED 11-06-2015 [facility] ABDOMINAL SERV PAIN [facility] Z720 TOBACCO USE 11-06-2015 [facility] 76142 NAUSEA 05-18-2014 [facility] PHYS [facility] 9919 UNSPECIFIED 05-18-2014 MAGDA [place] EFFECT OF URBAN REDUCED COGOVT TEMPERATURE 35551 UNSPECIFIED 11-16-2013 [facility] VIRAL [facility]ERG[facility] HEPATITIS C PHYS PSC W/O HEPATIC COMA 98637 ABDOMINAL 11-16-2013 [facility] PAIN, EMERGENCY UNSPECIFIED PHYS PSC SITE 462 ACUTE 04-09-2011 PEÑALOZA HARITHA PHARYNGITIS 6238 OTHER 02-24-2011 [facility] SPECIFIED N EMERGENCY NONINFLAMMA PHYSI TORY DISORDER VAGINA 7881 DYSURIA 02-24-2011 [facility] N EMERGENCY PHYSI 7242 LUMBAGO 12-23-2010 [place] [facility] 3549 UNSPECIFIED 10-20-2010 [facility] MONONEURITI S OF [place] 3559 MONONEURITI 10-20-2010 [facility] UNSPECIFIED PHYS SITE 7295 PAIN IN 2010 [facility] SOFT SERV TISSUES OF FOUNDAT[facility] LIMB 7379 UNSPECIFIED 2010 [facility] CURVATURE SERV OF SPINE [facility] 8472 LUMBAR 09-05-2010 [facility] E9270 OVEREXERTIO 09-05-2010 [facility] FROM EMERGENCY SUDDEN SERVICES STRENUOUS MOVEMENT 29150 OTH COMP OB 06-28-2010 [facility] SURGICAL N EMERGENCY WOUNDS SERV COND/COMP 17285 INFECTED 06-21-2010 [facility] POSTOPERATI VE SEROMA NEC V3001 SINGLE 06-13-2010 [facility] [place] [address] PREV C/S 06-10-2010 [facility] DELIV DELIV CENTER W/WO PLLC MENTION ANTPRTM COND V252 STERILIZATI 06-10-2010 [facility] DUB[facility] V270 OUTCOME OF 06-10-2010 [facility] DELIVERY CENTER SINGLE PLLC LIVEBORN V221 SUPERVISION 06-09-2010 [facility] OTHER CENTER NORMAL PLLC 88375 RHESUS 03-21-2010 [facility] ISOIMMUN CENTER AFFCT MGMT PLLC MOTH ANTPRTM COND V283 ENCOUNTER 01-30-2010 [facility] ROUTINE CENTER SCREEN PLLC MALFORMATIO N ULTRASONIC 45090 PREVIOUS 01-20-2010 [facility] ANTPRTM COND/COMP V237 INSUFFICIEN 01-20-2010 [facility] Ly NIKHILYETTE CO CARE H D V2389 SUPERVISION 01-20-2010 [facility] OF OTHER [place] CO HIGH-RISK H D V2509 OT GENERAL 01-20-2010 [facility] TEJEDAYETTE CO CNSL&ADVICE H D CONTRACEPT MANAGEMENT 6264 IRREGULAR 12-02-2009 [facility] MENSTRUAL CENTER CYCLE PLLC V745 [...] 3- 3- 00 ER 70 AR ve WV 34 20 20 1 T AM 43 [...] LA ZA 82 11 11 PH RR WV 1 AR Y IN MA C E [...] PA ZA 81 11 11 PH IG WV 0 AR E IN MA E E CY 10 # MG 24 76 TA 8 BL ET NA 00 06 06 0 20 10 KR 67 RO Ac WV 09 -2 -2 .0 OG 72 HE ti OX 30 4- 8- 00 ER 30 ve EN 14 20 20 0 PA 90 11 11 PH IG 50 5 AR E 0 MA E MG CY # TA BL 24 ET 76 8 WV 00 06 06 0 10 5 KR [...] 20 31 11 11 FA ER 6 NC IN LY L DR UG OX 00 [...] Procedure DOS Code Location Performer Comment SBS 28439 [facility] 7 HEALTH CARE/DAY MEDICAL 25 GROUP MINUTES INITIAL 07642 [facility] 7 HEALTH CARE/DAY MEDICAL 70 GROUP MINUTES RADIOLOGI 64447 V[facility] CURTIS C EXAM 7 RADIOLOGI CHEST 2 C VIEWS PROFESSIO FRONTAL&[place] [address] CNTRL [place] [facility] ABDOMEN & 7 RADIOLOGY LD IV PELVIS [...] URBAN URBAN STATUTE COGOVT COGOVT MILE LAPAROSCO 09678 [place] [facility] PY SURG 6 MEDICAL TONY CHOLECYST SERV ECTOMY FOUND[facility] N ANES 09635 [facility] 6 LTH ANDREW TONEAL ANESTHESI UPPER A PSC ABDOMEN W/LAPS NOS LEVEL III 53569 [place] NELTNER SURG 6 MEDICAL EVA PATHOLOGY SERV [facility] GROSS&ABDIRIZAK N ROSCOPIC EXAM IMHISTOCH 58216 [place] NELTCYNTH[place] EM/CYTCHM 6 MEDICAL Mar SERV ANTIBODY [facility] STAIN N PROCEDURE IMHISTOCH 78699 [place] NELUANN EM/CYTCHM 6 MEDICAL EVA EA ADDL SERV ANTIBODY [facility] SLIDE N THER 25830 [facility] PROPH/DX 6 Y Y NJX IV HOSPITAL HOSPITAL PUSH SINGLE/1S T SBST/[place] [address] [facility] LIPASE 6 Y Y HOSPITAL HOSPITAL URINE 87184 [facility] 6 Y Y TEST [facility] [place] [address] [facility] ABDOMINAL 6 Y Y REAL [facility] TIME W/IMAGE LIMITED THERAPEUT 65463 [facility] IC 6 Y Y INJECTION [facility] IV PUSH EACH NEW DRUG INJECTION J2270 [facility] MORPHINE 6 Y Y SULFATE [facility] UP TO 10 MG COMPREHEN 04485 [facility] SIVE 6 Y Y METABOLIC [facility] PANEL URNLS DIP 88094 [facility] 6 Y Y STICK/TAB [facility] LET RGNT AUTO W/O MICROSCOP Y INJECTION J2405 [facility] 6 [facility] 1 MG BLOOD 44350 [facility] COUNT 6 Y Y COMPLETE [facility] AUTOMATED AMBULANCE A0429 MAGDA MAGDA SERVICE 5 [place] FAY[place] BLS URBAN URBAN EMERGENCY COGOVT COGOVT TRANSPORT GROUND A0425 MAGDA MAGDA MILEAGE 5 [place]AY[place] FAY[place] PER URBAN URBAN STATUTE COGOVT COGOVT MILE SERVICES 89712 GREG SUEROAVER PROVIDED 5 FROY[place] ELIZABETH BTW 10 EMERGENCY PM&8 AM PHYS AT 24-HR FACI APPLICATI 83343 GREG WEATHERSER ON SHORT 1 [place] NAZ ARM EMERGENCY SPLINT PHYS FOREARM-H AND STATIC RADEX 54851 [facility] EMIR SPINE 1 [facility] ANDREW LUMBOSACR ON CLINIC AL 2/3 VIEWS RADEX 30905 [place] EMIR SPINE 1 [facility]REW THORACIC ON CLINIC [address] [facility] [address]36 [place] DISCHARGE 1 [place] [facility]INIC MANAGEMEN PSC T 30 MIN/< SUBQ 51143 [facility] 1 [place] CARE PER CLINIC DAY E/M PSC NORMAL 07956 [facility] 1 [place] [facility] PSC CARE PER DAY NML NB LOW 741 [facility] CERVICAL 1 [facility] SECTION OTH 6639 [facility] BILATERAL 1 [facility] DESTRUC/[place] [address] [facility] FELI SURG 1 [facility]REW PATHOLOGY DUBILIER GROSS&ABDIRIZAK ROSCOPIC EXAM 81568 [facility] DELIVERY 1 CARE THO ONLY CENTER W/POSTPAR PLLC EMELY CARE ANESTHESI 51920 [facility] MELIO PAULA A 1 ANESTHESI A PSC DELIVERY ONLY LIG/TRNSX 49606 [facility] MARTINEZ J 1 CARE THO FALOPIAN CENTER TUBE PLLC DEL/ABDML SURG GLUCOSE 66040 [facility] POST 1 [facility] GLU[facility]SE [facility] HOSP DOSE INJECTION J2790 [facility] RHO D IG 1 CARE THO HUMAN CENTER FULL DOSE PLLC 300 MCG BLOOD 68716 [facility] COUNT 1 [facility] HEMATOCRI [facility]OSP HOSP T COLLECTIO 81997 [facility] N VENOUS 1 [facility] BLOOD [facility]P HOSP VENIPUNCT URE ANTIBODY 71184 [facility] SCREEN 1 [facility] RBC EACH HOSP HOSP SERUM TECHNIQUE BLOOD 52137 [facility] COUNT 1 [facility] HEMOGLOBI HOSP HOSP N US PREG 95471 [facility] FRANTZ GLE UTERUS 0 CARE AFTER 1ST [place] [address] GENZYME GENZYME ESTRIOL 0 CORPORAT CORPORAT ALPHA-FET 90744 GEN[facility] GENZYME OPROTEIN 0 CORPORAT CORPORAT SERUM GONADOTRO 05418 GENZ[facility] GENZYME PIN 0 CORPORAT CORPORAT CHORIONIC QUANTITAT [place]AYLEE INHIBIN A 08361 GENZYME GENZYME 0 CORPORAT CORPORAT COLLECTIO 82988 [facility] NATACHA N VENOUS 0 RAHUL-DALT ALICE BLOOD ON CLINIC VENIPUNCT URE IADNA 53898 PATHOLOGY PATHOLOGY NEISSERIA 0 & & CYTOLOGY CYTOLOGY GONORRHOE LAB LAB AE AMPLIFIED PROBE TQ IADNA 31582 PATHOLOGY PATHOLOGY CHLAMYDIA 0 & & CYTOLOGY CYTOLOGY TRACHOMAT LAB [place] [address] [facility] MARTINEZ 0 CARE THO UTERUS CENTER LIMITED PLLC 1/> FETUSES CYTP C/V 55248 PATHOLOGY PATHOLOGY AUTO THIN 0 & & LYR CYTOLOGY CYTOLOGY PREPJ SCR LAB LAB MNL RESCR PHYS Encounters Encounter Start End Date Code Location Performer Type Date EMERGENCY 53431 [facility] DEPT 7 7 EMERGENCY VISIT PHYS PSC HIGH SEVERITY& THREAT FUNCJ EMERGENCY 23533 [facility] DEPT 7 7 [place] VISIT EMERGENCY HIGH PHYS SEVERITY& THREAT FUNCJ OFFICE 74532 [place] [facility] 6 6 MEDICAL TONY T NEW 20 SERV MINUTES [facility] N EMERGENCY 91999 [facility] 6 6 Y [facility] HIGH/URGE NT SEVERITY [facility] - 6 6 Y OUTPATI HOSPITAL T EMERGENCY 66843 [facility] 5 5 EMERGENCY RYA DEPARTMEN PHYS PSC T VISIT HIGH/URGE NT SEVERITY EMERGENCY 54338 [facility] PEREZ DEPT 5 5 FROYLAN ELIZABETH VISIT EMERGENCY HIGH PHYS SEVERITY& THREAT FUNCJ EMERGENCY 54312 [facility] DEPT 4 4 EMERGENCY VISIT PHYS PSC HIGH SEVERITY& THREAT FUNCJ EMERGENCY 27868 PEÑALOZA HARITHA PEÑALOZA HARITHA 2 2 DEPARTMEN T VISIT MODERATE SEVERITY EMERGENCY 77441 [facility] MAXWELL W 1 1 FROYLAN DEPARTMEN EMERGENCY T VISIT PHYSI HIGH/URGE NT SEVERITY OFFICE 20961 [place] [facility] OUT[facility] 1 1 MEDICAL ABDIRIZAK T VISIT SERV 25 FOUNDATIO MINUTES EMERGENCY 39404 [facility] 1 1 HOSPITAL DEPARTMEN T VISIT LOW/MODER SEVERITY [facility] - 1 1 HOSPITAL OUTPATIEN T EMERGENCY 60470 GREG BACK 1 1 FROYLAN CHILDS DEPARTMEN EMERGENCY T VISIT PHYS MODERATE SEVERITY EMERGENCY 67526 [facility] 1 1 EMERGENCY EMILY DEPARTMEN SERVICES T VISIT MODERATE SEVERITY EMERGENCY 94184 [facility] 1 1 FROYLAN ANDREW DEPARTMEN EMERGENCY T VISIT SERV MODERATE SEVERITY HOME [facility], 1 1 E OUTPATIEN HOSP[facility] [place] [address] 1 [facility] INPATIENT [facility]OSP OFFICE 18352 [facility] 1 1 CARE THO T VISIT CENTER 15 PLLC MINUTES OFFICE 16450 [facility] OUT[facility] 1 1 CARE THO T VISIT CENTER 15 PLLC MINUTES OFFICE 65027 [facility] OUT[facility] 1 1 CARE THO T VISIT CENTER 15 PLLC MINUTES OFFICE 84520 [facility] OUT[facility] 1 1 CARE THO T VISIT CENTER 15 PLLC MINUTES OFFICE 30556 [facility] OUT[facility] 1 1 CARE THO T VISIT CENTER 15 PLLC MINUTES OFFICE 35222 [facility] OUTPATIEN 1 1 CARE THO T VISIT CENTER 15 PLLC MINUTES OFFICE 99554 [facility] OUT[facility]IEN 1 1 CARE THO T VISIT CENTER 15 PLLC MINUTES [facility]OSP[facility] [place] [address] 1 [facility] OUTPATIEN HOSP T OFFICE 69944 [facility] MARTINEZ OUTPATIEN 0 0 CARE THO T VISIT CENTER 15 PLLC MINUTES OFFICE 01943 [facility] [place] OUT[facility]IEN 0 0 FAY[place]TE FAYETTE T VISIT CO H D CO H D 10 MINUTES OFFICE 82939 DULCE MARTINEZ OUTPATIEN 0 0 CARE THO T DAVID 45 CENTER MINUTES PLLC
--- OUTSIDE RECORDS SUMMARY | 2016-12-24 23:36 | External Medical Summary Rpt ---
Author Author JENS Carter, [employer] [employer] Organization [facility] [employer] Address Unknown Phone Unavailable Results Urinalysis dipstick W Reflex Microscopic panel in Urine Observa Value Referen Units Interpr Notes Date tion ce etation Range Appeara CLEAR CLEAR No No No Dec 17 nce of informa informa informa 2016 Urine tion in tion in tion in 7:05 PM source source source data data data Bacteri NONE O No No No Dec 17 a informa informa informa 2016 [Presen tion in tion in tion in 7:05 PM ce] in source source source Urine data data data sedimen t by Light microsc opy Bilirub NEGATIV NEG No No No Dec 17 in E informa informa informa 2016 [Presen tion in tion in tion in 7:05 PM ce] in source source source Urine data data data by Test strip Erythro NEGATIV NEG No No No Dec 17 cytes E informa informa informa 2016 [Presen tion in tion in tion in 7:05 PM ce] in source source source Urine data data data Color YELLOW YELLOW No No No Dec 17 of informa informa informa 2016 Urine tion in tion in tion in 7:05 PM source source source data data data Glucose NEG No No No Dec 17 [Mass/vol informati informati informati 2016 7:05 ume] in on in on in on in PM Urine by source source source Test data data data strip Ketones NEGATIV NEG mg/dL No No Dec 17 E informa informa 2016 [Presen tion in tion in 7:05 PM ce] in source source Urine data data by Automat ed test strip Mucus NEGATIV NEG No No No Dec 17 [Presen E informa informa informa 2016 ce] in tion in tion in tion in 7:05 PM Urine source source source sedimen data data data t by Light microsc opy Nitrite NEGATIV NEG No No No Dec 17 E informa informa informa 2016 [Presen tion in tion in tion in 7:05 PM ce] in source source source Urine data data data by Test strip pH of 5.0 - 8.5 No Normal No Dec 17 Urine informati informati 2016 7:05 on in on in PM source source data data Protein NEG mg/dL No No Dec 17 [Mass/vol informati informati 2016 7:05 ume] in on in on in PM Urine by source source Automated data data test strip Erythro NONE 0 rbc/hpf No No Dec 17 cytes informa informa 2016 [Presen tion in tion in 7:05 PM ce] in source source Urine data data sedimen t by Light microsc opy Specific 1.005 - No Normal No Dec 17 gravity 1.030 informati informati 2016 7:05 of Urine on in on in PM source source data data Epithel NONE 0 - 5 #/hpf No No Dec 17 ial informa informa 2016 cells.s tion in tion in 7:05 PM quamous source source data data [Presen ce] in Urine sedimen t by Microsc opy high power field Urobili 0.2 NEG E.U./dL No No Dec 17 nogen informa informa 2016 [Presen tion in tion in 7:05 PM ce] in source source Urine data data by Test strip Leukocyte O wbc/hpf No No Dec 17 s informati informati 2016 7:05 [#/volume on in on in PM ] in source source Urine data data Urinalysis dipstick W Reflex Microscopic panel in Urine Observa Value Referen Units Interpr Notes Date tion ce etation Range Appeara CLEAR CLEAR No No No Dec 17 nce of informa informa informa 2016 Urine tion in tion in tion in 7:05 PM source source source data data data Bilirub NEGATIV NEG No No No Dec 17 in E informa informa informa 2016 [Presen tion in tion in tion in 7:05 PM ce] in source source source Urine data data data by Test strip Erythro NEGATIV NEG No No No Dec 17 cytes E informa informa informa 2016 [Presen tion in tion in tion in 7:05 PM ce] in source source source Urine data data data Color YELLOW YELLOW No No No Dec 17 of informa informa informa 2016 Urine tion in tion in tion in 7:05 PM source source source data data data Glucose NEG No No No Dec 17 [Mass/vol informati informati informati 2016 7:05 ume] in on in on in on in PM Urine by source source source Test data data data strip Ketones NEGATIV NEG mg/dL No No Dec 17 E informa informa 2016 [Presen tion in tion in 7:05 PM ce] in source source Urine data data by Automat ed test strip Mucus NEGATIV NEG No No No Dec 17 [Presen E informa informa informa 2016 ce] in tion in tion in tion in 7:05 PM Urine source source source sedimen data data data t by Light microsc opy Nitrite NEGATIV NEG No No No Dec 17 E informa informa informa 2016 [Presen tion in tion in tion in 7:05 PM ce] in source source source Urine data data data by Test strip pH of 5.0 - 8.5 No Normal No Dec 17 Urine informati informati 2016 7:05 on in on in PM source source data data Protein NEG mg/dL No No Dec 17 [Mass/vol informati informati 2016 7:05 ume] in on in on in PM Urine by source source Automated data data test strip Specific 1.005 - No Normal No Dec 17 gravity 1.030 informati informati 2016 7:05 of Urine on in on in PM source source data data Urobili 0.2 NEG E.U./dL No No Dec 17 nogen informa informa 2016 [Presen tion in tion in 7:05 PM ce] in source source Urine data data by Test strip Drugs identified in Urine by Screen method Observa Value Referen Units Interpr Notes Date tion ce etation Range Positive urine drug screen samples are stored for 7 days. Contact the Lab if confirmation of positives is needed. Ampheta NEGATIV <1000 ng/mL No No Dec 17 mine E informa informa 2016 [Presen tion in tion in 7:05 PM ce] in source source Urine data data by Screen method Barbitura <200 ng/mL No No Dec 17 jose informati informati 2016 7:05 [Mass/vol on in on in PM ume] in source source Urine by data data Screen method Benzodiaz 200 ng/mL ng/mL No No Dec 5 epines informati informati 2016 7:05 [Mass/vol on in on in PM ume] in source source Serum or data data Plasma by Screen method Cocaine <300 ng/g No No Dec 5 [Mass/vol informati informati 2016 7:05 ume] in on in on in PM Unspecifi source source ed data data specimen Methadone <300 ng/mL No No Dec 17 informati informati 2016 7:05 [Mass/vol on in on in PM ume] in source source Unspecifi data data ed specimen Opiates <300 ng/mL No No Dec 5 [Mass/vol informati informati 2016 7:05 ume] in on in on in PM Unspecifi source source ed data data specimen Phencycli <25 ng/mL No No Dec 5 dine informati informati 2016 7:05 [Mass/vol on in on in PM ume] in source source Unspecifi data data ed specimen 11-Hydr NEGATIV <50 ng/mL No No Dec 17 oxy E informa informa 2017 delta-9 tion in tion in 7:05 PM source source tetrahy data data drocann abinol [Presen ce] in Unspeci fied specime n
== END ==
LOC: ER 19:01
PROVIDERS: Emergency Medicine
DX: Z02.89 Encounter for other administrative examinations (principal); F17.210 Nicotine dependence, cigarettes, uncomplicated